=== PATIENT | female | born 1990 | race Caucasian/White ===

== ENCOUNTER 2020-09-04 11:00 | Outpatient (REF) | payer MEDICAID, SELFPAY | END 2020-09-04 11:01 | disposition home or self-care (01) | LOC: HO.LAB 11:00 | PROVIDERS: Visit Provider Internal Medicine | DX: Z20.828 Contact with and (suspected) exposure to other viral communicable diseases (principal) | CPT/HCPCS: C9803; U0003 ==

== ENCOUNTER 2021-01-11 13:08 | Outpatient (REF) | payer MEDICAID, SELFPAY ==
--- NOTE | ~2021-01-11 | XR_ITS ---
EXAMINATION: XR CHEST CLINICAL INFORMATION: Preprocedure exam COMPARISON: None TECHNIQUE: 2 views of the chest were obtained. FINDINGS: No significant abnormality is noted involving the heart, lungs, mediastinum, bony thorax or soft tissues. XR/XR chest 2V IMPRESSION: Unremarkable examination.
== END 2021-01-11 13:09 | disposition home or self-care (01) ==
LOC: HO.XRAY 13:08
PROVIDERS: PCP Internal Medicine; Visit Provider Internal Medicine
DX: Z01.818 Encounter for other preprocedural examination (principal)
CPT/HCPCS: 71046

== ENCOUNTER 2021-02-17 15:21 | Outpatient (REF) | payer MEDICAID, SELFPAY ==
[2021-02-17 16:48] LABS: Anion Gap 12 (12-20); Blood Urea Nitrogen 13 mg/dL (9-16); Calcium 9.1 mg/dL (8.4-10.2); Carbon Dioxide 28 mmol/L (22-29); Chloride 104 mmol/L (96-108); Estimated Glomerular Filt Rate 33; Potassium 4.3 mmol/L (3.3-5.1); Sodium 140 mmol/L (135-145)
== END 2021-02-17 15:22 | disposition home or self-care (01) ==
LOC: HO.LAB 15:21
PROVIDERS: PCP Pediatrics; Visit Provider Internal Medicine Nephrology
DX: N17.9 Acute kidney failure, unspecified (principal)
CPT/HCPCS: 36415; 80051; 82310; 82565; 84520

== ENCOUNTER 2022-08-09 10:02 | Emergency (ER) | payer MEDICAID, SELFPAY ==
[2022-08-09 10:16] VITALS: BP 118/46; PULSE 73; RESP 20; TEMP 36.3; O2SAT 100; BMI 25.7
[2022-08-09 10:30] LABS: MANUAL DIFF FLAG NO
[2022-08-09 10:34] LABS: Basophils Absolute Auto 0.1 X10*3/uL (0.0-0.2); Basophils Percent Auto 0.6 % (0-2); Eosinophils Absolute Auto 0.1 X10*3/uL (0.0-0.4); Eosinophils Percent Auto 1.3 % (0-4); Hematocrit 37.8 % (37.0-47.0); Hemoglobin 12.6 g/dl (12.0-16.0); Imm Gran Abs Auto 0.05 X10*3/uL (0.00-0.03); Imm Gran Pct Auto 0.5 % (0.0-0.4); Lymphocytes Absolute Auto 1.8 X10*3/uL (1.2-4.9); Lymphocytes Percent Auto 18.8 % (20-40); Mean Corpuscular HGB Conc 33.3 g/dl (31.0-35.0); Monocytes Absolute Auto 0.3 X10*3/uL (0.1-1.2); Monocytes Percent Auto 3.6 % (2-11); Neutrophils Absolute Auto 7.1 x10*3/uL (2.0-8.3); Neutrophils Percent Auto 75.2 % (45-73); Platelet Count 263 X10*3/uL (160-400); White Blood Count 9.5 X10*3/uL (4.8-10.8)
[2022-08-09 11:14] LABS: Anion Gap 12 (12-20); Blood Urea Nitrogen 8 mg/dL (9-16); Calcium 9.5 mg/dL (8.4-10.2); Carbon Dioxide 23 mmol/L (22-29); Chloride 105 mmol/L (96-108); Estimated Glomerular Filt Rate > 60; Glucose Random 79 mg/dL (60-115); Potassium 3.8 mmol/L (3.3-5.1); Sodium 136 mmol/L (135-145)
--- OUTSIDE RECORDS SUMMARY | 2022-08-09 15:39 | XMS_ITS | Continuity of Care Document ---
:1990 Author Organization [facility] Address [address] [place] [address]- Care Team Providers Name Role Phone Alexey DOZIER, Debbi Haywood Primary Care Physician Encounter [facility] [place] Date(s): 10/22/20 - 11/21/[address] [address] Allergies, Adverse Reactions, Alerts No Known Medication Allergies Medications Colace sodium 100 mg oral capsule 100 mg, 1, capsule, By Mouth, 2 times a day, PRN, # 40 capsule, Refills 0, Tot. Refills 0, Maintenance, for constipation, 05/09/18 6:50:35 EDT, Print Requisition Start Date: 05/09/18 Status: OrderedHandheld Electric Breast Pump See Instructions, # 1 units, Maintenance, See instructions, 05/09/18 6:50:43 EDT, Compound Start Date: 05/09/18 Status: OrderedNexplanon 68 mg subcutaneous implant 1 each = 68 mg, Subcutaneous Infusion, Once, # 1 each, 0 Refills, Soft Stop, 05/06/18 6:53:59 EDT Start Date: 05/06/18 Status: OrderedNexplanon 68 mg subcutaneous implant 1 each = 68 mg, Subcutaneous Infusion, Once, # 1 each, 0 Refills, Soft Stop, 05/09/18 6:52:05 EDT Start Date: 05/09/18 Status: Ordered Problem List Condition Effective Dates Status Health Status Informant Gestational hypertension(Confirmed) Active Active labor(Confirmed) Active delivery indicated due to Active breech presentation(Confirmed) Twins(Confirmed) Active
--- OUTSIDE RECORDS SUMMARY | 2022-08-09 15:39 | XMS_ITS | Continuity of Care Document ---
:1990 Author Organization [facility] Address [address] [place] [address] Drive [address] [place] [address]- Care Team Providers Name Role Phone Debbi Blackburn MD Primary Care Physician Encounter [facility] Date(s): 02/26/21 - 03/05/21 [facility] [address] [place] [address] Drive [address] [place], [place] [address] Attending Physician: Dg Nguyen MD Referring Physician: Debbi Blackburn MD Allergies, Adverse Reactions, Alerts No Known Medication Allergies Medications cetirizine 10 mg oral tablet 1 tablet = 10 mg, By Mouth, Daily, PRN Itch, # 30 tablet, 0 Refills, Maintenance, 02/28/21 2:04:00 EDT, Tablet, [id number], Partial fill upon patient request if the prescription is for a schedule II opioid drug., 160, cm, 02/26/21 11:22:00 EDT... Start Date: 02/28/21 Status: OrderedColace sodium 100 mg oral capsule 100 mg, [...] due to Active breech presentation(Confirmed) Twins(Confirmed) Active Vital Signs Most recent to oldest [Reference Range]: 1 Height 160 cm (02/26/21 11:22 AM) Weight 74 kg (02/26/21 11:22 AM) Body Mass Index [18.5-24.99] 28.91 *H* (02/26/21 11:22 AM) Temperature [96.8-100.4 DegF] 98.3 DegF (02/26/21 11:22 AM) Social History Social History Type Response Smoking Status Never (less than 100 in life time) entered on: 02/18/21 Sex
--- OUTSIDE RECORDS SUMMARY | 2022-08-09 15:39 | XMS_ITS | Continuity of Care Document ---
:1990 Author Organization [facility] Address [address] [place] [address] Drive [address] [place] [address]- Care Team Providers Name Role Phone Debbi Blackburn MD Primary Care Physician Encounter [facility] Date(s): 02/18/21 - 02/25/21 [facility] [address] [place] [address] Drive [address] [place], [place] [address] Attending Physician: Dg Nguyen [...] oldest [Reference Range]: 1 Height 160 cm (02/18/21 11:49 AM) Weight 77 kg (02/18/21 11:49 AM) Body Mass Index [18.5-24.99] 30.08 *>HHI* (02/18/21 11:49 AM) Social History Social History Type Response Smoking Status Never (less than 100 in life time) entered on: 02/18/21 Sex
--- OUTSIDE RECORDS SUMMARY | 2022-08-09 15:39 | XMS_ITS | Continuity of Care Document ---
:1990 Author Organization [facility] Address [address] [place] [address]- Care Team Providers Name Role Phone Alexey DOZIER, Debbi Haywood Primary Care Physician En[place] [facility] Date(s): 04/08/20 - 05/08/[address] [address]- [facility] Attending Physician: Stew Campbell Admitting Physician: Stew Campbell Referring Physician: AdmtrStew Allergies, Adverse Reactions, Alerts No Known Medication [...]
--- OUTSIDE RECORDS SUMMARY | 2022-08-09 15:39 | XMS_ITS | Continuity of Care Document ---
:1990 Author Organization [facility] Address [address] [place] [address] Drive [address] [place] [address]- Care Team Providers Name Role Phone Alexey DOZIER, Debbi Haywood Primary Care Physician Encounter [facility] Date(s): 02/26/21 - 03/28/21 [facility] [address] [place] [address] Drive [address] [place], [place] [address] Attending Physician: Stew Campbell Admitting Physician: Stew Campbell Referring Physician: AdmtrStew Allergies, Adverse Reactions, Alerts No Known Medication Allergies Medications cetirizine 10 mg oral tablet 1 tablet = 10 mg, By Mouth, Daily, PRN Itch, # 30 tablet, 0 Refills, Maintenance, 02/28/21 2:04:00 EDT, Tablet, [id number], Partial fill upon patient request if the [...] due to Active breech presentation(Confirmed) Twins(Confirmed) Active Social History Social History Type Response Smoking Status Never (less than 100 in life time) entered on: 02/18/21 Sex
--- OUTSIDE RECORDS SUMMARY | 2022-08-09 15:40 | XMS_ITS | Continuity of Care Document ---
:1990 Author Organization [facility] Address [address] [place] [address]- Care Team Providers Name Role Phone Alexey DOZIER, Debbi Haywood Primary Care Physician Encounter [facility] [place] Date(s): 02/26/20 - 05/08/[address] [address]- [facility] Attending Physician: Not on Staff, Attending MD Allergies, Adverse Reactions, Alerts No Known [...]
--- OUTSIDE RECORDS SUMMARY | 2022-08-09 15:40 | XMS_ITS | Continuity of Care Document ---
:1990 Author Organization [facility] Address [address] [place] [address]- Care Team Providers Name Role Phone Debbi Blackburn MD Primary Care Physician Encounter [facility] [place] Date(s): 02/12/21 - 03/14/[address] [address] Attending Physician: Not on Staff, Attending MD Admitting Physician: Not on Staff, Admitting MD Referring Physician: Not on Staff, Referring MD Allergies, Adverse Reactions, Alerts No Known Medication Allergies Medications cetirizine 10 mg oral tablet 1 tablet = 10 mg, By Mouth, Daily, PRN Itch, # 30 tablet, 0 Refills, Maintenance, 02/28/21 2:04:00 EDT, Tablet, [id number], Partial fill upon patient request if the [...]
--- OUTSIDE RECORDS SUMMARY | 2022-08-09 15:40 | XMS_ITS | Continuity of Care Document ---
:1990 Author Organization [facility] Address [address] [place] [address]- Care Team Providers Name Role Phone Debbi Blackburn MD Primary Care Physician [id number] Date(s): 02/27/21 - 02/28/[address] [address]- Encounter Diagnosis Urticaria (Final) - 02/28/21 Urticaria (Final) - 02/28/21 Discharge Disposition: A-D/C Home Attending Physician: Carlos Doe MD Admitting Physician: Carlos Doe MD Referring Physician: Not on Staff, Referring MD Allergies, Adverse Reactions, Alerts No Known Medication Allergies Medications cetirizine 10 mg oral tablet 1 tablet = 10 mg, By Mouth, Daily, PRN Itch, # 30 tablet, 0 Refills, Maintenance, 02/28/21 2:04:00 EDT, Tablet, [facility]/pharmacy #[id number], Partial fill upon patient request if the [...] # 1 each, 0 Refills, Soft Stop, 08/05/18 6:53:59 EDT Start Date: 05/06/18 Status: OrderedNexplanon 68 mg subcutaneous implant 1 each = 68 mg, Subcutaneous Infusion, Once, # 1 each, 0 Refills, Soft Stop, 05/09/18 6:52:05 EDT Start Date: 05/09/18 Status: OrderedpredniSONE 20 mg oral tablet 2 tablet = 40 mg, By Mouth, Daily, for 5 days, # 10 tablet, 0 Refills, Acute 03/05/21 2:04:00 EDT, 02/28/21 2:04:00 EDT, Tablet, [facility]/pharmacy #[id number], Partial fill upon patient request if the prescription is for a schedule II opioid drug., 160, cm, 01/31... Start Date: 02/28/21 Stop Date: 03/05/21 Status: Ordered Problem List Condition Effective Dates Status Health Status Informant Gestational hypertension(Confirmed) Active Active labor(Confirmed) Active delivery indicated due to Active breech presentation(Confirmed) Twins(Confirmed) Active Vital Signs Most recent to oldest 1 2 3 [Reference Range]: Weight 72.8 kg 72.8 kg 72.8 kg (02/28/21 12:17 AM) (02/27/21 9:52 PM) (02/27/21 9: 47 PM) Oxygen Saturation [94-100 %] 100 % 100 % 100 % (02/28/21 2:47 AM) (02/28/21 12:16 AM) (02/27/21 9: 52 PM) Pulse Rate [55-90 bpm] 76 bpm 86 bpm 93 bpm (02/28/21 2:47 AM) (02/28/21 12:16 AM) *H* (02/27/21 9:52 PM ) Blood Pressure [90-138/55-84 121/67 mm Hg 145/85 mm Hg 133 /91 mm Hg mm Hg] (02/28/21 2:47 AM) *H* (02/27/21 9:52 PM) (02/28/21 12:16 AM) Respiratory Rate [16-30 18 br/min 16 br/min 20 br/mi n br/min] (02/28/21 2:47 AM) (02/28/21 12:16 AM) (02/27/21 9: 52 PM) Temperature [96.8-100.4 DegF] 98.3 DegF 98.5 DegF 98 .6 DegF (02/28/21 2:47 AM) (02/28/21 12:16 AM) (02/27/21 9: 52 PM) Mode of Delivery (Oxygen) Room air Room air Room a ir (02/28/21 12:16 AM) (02/27/21 9:52 PM) (02/27/21 9: 47 PM) Blood pressure sites Arm, left Arm, left Arm, left (02/28/21 2:47 AM) (02/28/21 12:16 AM) (02/27/21 9: 47 PM) Temperature Route Oral Oral Oral (02/28/21 12:16 AM) (02/27/21 9:52 PM) (02/27/21 9: 47 PM) Dry Weight 72.8 kg 72.8 kg 72.8 kg (02/28/21 12:17 AM) (02/27/21 9:52 PM) (02/27/21 9: 47 PM) Weight Obtained Via Standing scale (02/27/21 9:47 PM) Social History Social History Type Response Smoking Status Never (less than 100 in life time) entered on: 02/18/21 Sex
--- OUTSIDE RECORDS SUMMARY | 2022-08-09 15:40 | XMS_ITS | Continuity of Care Document ---
:1990 Author Organization [facility] Address [address] [place] [address]- Care Team Providers Name Role Phone Alexey DOZIER, Debbi Haywood Primary Care Physician Encounter [facility] Date(s): 11/14/20 - 03/14/[address] [address] Attending Physician: Darlene Carl CNM Admitting Physician: Darlene Carl CNM Referring Physician: Stephon DOZIER, Sierra Armstrong Allergies, Adverse Reactions, Alerts No Known Medication Allergies Medications cetirizine 10 mg oral tablet 1 tablet = 10 mg, By Mouth, Daily, PRN Itch, # 30 tablet, 0 Refills, Maintenance, 02/28/21 2:04:00 EDT, Tablet, [facility]/pharmacy #[id number], Partial fill upon patient request if the [...]
--- OUTSIDE RECORDS SUMMARY | 2022-08-09 15:40 | XMS_ITS | Continuity of Care Document ---
:1990 Author Organization [facility] Address [address] [place] [address]- Care Team Providers Name Role Phone Alexey DOZIER, Debbi Haywood Primary Care Physician Encounter [facility] Date(s): 02/05/21 - 02/12/[address] [address] Discharge Disposition: A-Transfer VNA/Home Health Attending Physician: Ge Wade MD Admitting Physician: Bg Simpson MD Referring Physician: Not on Staff, Referring MD Allergies, Adverse Reactions, Alerts No Known Medication Allergies Medications acetaminophen-oxyCODONE 325 mg-5 mg oral tablet 1, tablet, By Mouth, Every 4 hours, PRN, # 12 tablet, Refills 0, Tot. Refills 0, Acute, Pain , Severe, 02/18/21 18:00:00 EDT, 02/12/21 14:03:00 EDT, Route to Pharmacy Electronically, [facility]/pharmacy #[id number], Partial fill upon patient request if the... Start Date: 02/12/21 Stop Date: 02/18/21 Status: Orderedcephalexin monohydrate 500 mg oral capsule 1 capsule = 500 mg, By Mouth, Every 12 hours, for 7 days, # 14 capsule, 0 Refills, Acute 02/19/21 14:01:00 EDT, 02/12/21 14:01:00 EDT, Capsule, [facility]/pharmacy #[id number], Partial fill upon patient request if the prescription is for a schedule II opioid drug.... Start Date: 02/12/21 Stop Date: 02/19/21 Status: OrderedColace sodium 100 mg oral capsule [...] 05/09/18 6:52:05 EDT Start Date: 05/09/18 Status: OrderedPercocet-5 Tablet 1 tablet, Tablet, By Mouth, Every 4 hours, Hold for: Pt is drowsy , RR < 10, PRN for Pain , Severe, Routine, 02/06/21 0:49:00 EDT Start Date: 02/06/21 Stop Date: 02/13/21 Status: Discontinued Problem List Condition Effective Dates Status Health Status Informant Gestational hypertension(Confirmed) Active Active labor(Confirmed) Active delivery indicated due to Active breech presentation(Confirmed) Twins(Confirmed) Active Results Orders for Microbiology Reports Name Date Sterile Body Fluid Culture W/ Gram Smear 02/10/21 Sterile Body Fluid Culture W/ Gram Smear 02/10/21 Anaerobic Culture (ANAEROBIC CULTURE) 02/10/21 Anaerobic Culture (ANAEROBIC CULTURE) 02/10/21 Anaerobic Culture (ANAEROBIC CULTURE) 02/07/21 Sterile Body Fluid Culture W/ Gram Smear (Culture Ster ile Body Fluid w/ Gram 02/07/21 Smear) Urine Culture (URINE CULTURE) 02/05/21 Blood Culture 02/05/21 Blood Culture #2 02/05/21 Microbiology Reports TEST:Anaerobic Culture STATUS:Unauthenticated BODY SITE: SOURCE:ABDOMI COLLECTED DATE/TIME:02/10/21 10:41 AMAnaerobic Culture SPECIMEN DESCRIPTION : ABDOMINAL FLUID RIGHT LOWER QUAD SPECIAL REQUESTS : NONE CULTURE : NO ANAEROBES ISOLATED SO FAR. REPORT STATUS : PRELIMINARY REPORT TEST:Anaerobic Culture STATUS:Unauthenticated BODY SITE: SOURCE:ABDOMI COLLECTED DATE/TIME:02/10/21 10:41 AMAnaerobic Culture SPECIMEN DESCRIPTION : ABDOMINAL FLUID LEFT LOWER QUAD SPECIAL REQUESTS : NONE CULTURE : NO ANAEROBES ISOLATED SO FAR. REPORT STATUS : PRELIMINARY REPORT TEST:Sterile Fluid Culture STATUS:Auth (Verified) BODY SITE: SOURCE:ABDOMI COLLECTED DATE/TIME:02/10/21 10:41 AMSterile Fluid Culture SPECIMEN DESCRIPTION : ABDOMINAL FLUID LEFT LOWER QUAD SPECIAL REQUESTS : NONE GRAM STAIN : 2+ WHITE BLOOD CELLS 1+ RBC'S NO ORGANISMS SEEN CULTURE : NO GROWTH 2 DAYS REPORT STATUS : FINAL 02/12/2021TEST:Sterile Fluid Culture STATUS:Auth (Verified) BODY SITE: SOURCE:ABDOMI COLLECTED DATE/TIME:02/10/21 10:41 AMSterile Fluid Culture SPECIMEN DESCRIPTION : ABDOMINAL FLUID RIGHT LOWER QUAD SPECIAL REQUESTS : NONE GRAM STAIN : 3+ WHITE BLOOD CELLS 1+ RBC'S NO ORGANISMS SEEN CULTURE : NO GROWTH 2 DAYS REPORT STATUS : FINAL 02/12/2021TEST:Anaerobic Culture STATUS:Auth (Verified) BODY SITE: SOURCE:ABDOMI COLLECTED DATE/TIME:02/07/21 10:25 AMAnaerobic Culture SPECIMEN DESCRIPTION : ABDOMINAL FLUID ABDOMINAL WALL SEROMA SPECIAL REQUESTS : NONE CULTURE : NO ANAEROBES ISOLATED REPORT STATUS : FINAL 02/12/2021TEST:Sterile Fluid Culture STATUS:Auth (Verified) BODY SITE: SOURCE:ABDOMI COLLECTED DATE/TIME:02/07/21 10:25 AMSterile Fluid Culture SPECIMEN DESCRIPTION : ABDOMINAL FLUID ABDOMINAL WALL SEROMA SPECIAL REQUESTS : NONE GRAM STAIN : 2+ WHITE BLOOD CELLS 4+ RBC'S NO ORGANISMS SEEN CULTURE : NO GROWTH 2 DAYS REPORT STATUS : FINAL 02/09/2021TEST:Blood Culture, Second Order STATUS:Auth (Verified) BODY SITE: SOURCE:Blood COLLECTED DATE/TIME:02/05/21 6:41 PMBlood Culture, Second Order SPECIMEN DESCRIPTION : BLOOD LFT SPECIAL REQUESTS : NONE CULTURE : NO GROWTH 5 DAYS. REPORT STATUS : FINAL 02/10/2021TEST:Urine Culture STATUS:Auth (Verified) BODY SITE: SOURCE:URINE COLLECTED DATE/TIME:02/05/21 5:56 PMUrine Culture SPECIMEN DESCRIPTION : URINE SPECIAL REQUESTS : NONE CULTURE : NO GROWTH REPORT STATUS : FINAL 02/07/2021TEST:Blood Culture STATUS:Auth (Verified) BODY SITE: SOURCE:Blood COLLECTED DATE/TIME:02/05/21 4:34 PMBlood Culture SPECIMEN DESCRIPTION : BLOOD NO SITE SPECIAL REQUESTS : NONE CULTURE : NO GROWTH 5 DAYS. REPORT STATUS : FINAL 02/10/2021 Vital Signs Most recent to oldest 1 2 3 [Reference Range]: Height 160 cm 160 cm 160 cm (02/12/21 2:25 PM) (02/12/21 4:39 AM) (02/11/21 8:0 7 PM) Weight 74.5 kg (02/05/21 2:53 PM) Oxygen Saturation [94-100 %] 100 % 100 % 100 % (02/12/21 2:25 PM) (02/12/21 4:39 AM) (02/11/21 8:0 7 PM) Pulse Rate [55-90 bpm] 74 bpm 85 bpm 72 bpm (02/12/21 2:25 PM) (02/12/21 4:39 AM) (02/11/21 8:0 7 PM) Blood Pressure [90-138/55-84 mm 145/77 mm Hg 138/68 mm Hg 127/79 mm Hg Hg] *H* (02/12/21 4:39 AM) (02/11/21 8:07 PM) (02/12/21 2:25 PM) Respiratory Rate [16-30 br/min] 18 br/min 16 br/min 18 br/min (02/12/21 4:52 PM) (02/12/21 2:25 PM) (02/12/21 1:5 4 PM) Temperature [96.8-100.4 DegF] 98.1 DegF 98.6 DegF 98 .5 DegF (02/12/21 2:25 PM) (02/12/21 4:39 AM) (02/11/21 8:0 7 PM) Mode of Delivery (Oxygen) Room air Room air Room a ir (02/12/21 2:25 PM) (02/12/21 4:39 AM) (02/11/21 8:0 7 PM) Blood pressure sites Arm, right Arm, right Arm, right (02/12/21 2:25 PM) (02/12/21 4:39 AM) (02/11/21 8:0 7 PM) Temperature Route Oral Oral Oral (02/12/21 2:25 PM) (02/12/21 4:39 AM) (02/11/21 8:0 7 PM) Dry Weight 74.5 kg (02/05/21 2:53 PM)
--- OUTSIDE RECORDS SUMMARY | 2022-08-09 15:40 | XMS_ITS | Continuity of Care Document ---
:1990 Author Organization [facility] Address [address] [place] [address]- Care Team Providers Name Role Phone Alexey DOZIER, Debbi Haywood Primary Care Physician Encounter [facility] [place] Date(s): 02/26/20 - 03/27/[address] [address]- [facility] Attending Physician: Stew Campbell Admitting [...]
--- OUTSIDE RECORDS SUMMARY | 2022-08-09 15:40 | XMS_ITS | Continuity of Care Document ---
:1990 Author Organization [facility] Address [address] [place] [address]- Care Team Providers Name Role Phone Alexey DOZIER, Debbi Haywood Primary Care Physician Encounter [facility] [place] Date(s): 02/12/21 - 03/14/[address] [address]- Attending Physician: Stew Campbell Admitting Physician: AdmtrStew Referring Physician: AdmtrStew Allergies, Adverse Reactions, Alerts No Known Medication Allergies Medications cetirizine 10 mg oral tablet 1 tablet = 10 mg, By Mouth, Daily, PRN Itch, # 30 tablet, 0 Refills, Maintenance, 02/28/21 2:04:00 EDT, Tablet, [facility]/pharmacy #[id number], Partial fill upon patient request if the [...]
--- OUTSIDE RECORDS SUMMARY | 2022-08-09 15:40 | XMS_ITS | Continuity of Care Document ---
:1990 Author Organization [facility] Address [address] [place] [address]- Care Team Providers Name Role Phone Angelica Cantu MD, Roberta Vang Primary Care Physician [phone] Encounter [facility] Date(s): 07/05/22 - 08/04/[address] [address]- Allergies, Adverse Reactions, Alerts No Known Allergies Medications aspirin 81 mg oral delayed release tablet See Instructions, 2 tablet By Mouth at night Please begin to take at 12 weeks of ., # 60 tablet, 0 Refills, Maintenance, 08/02/22 10:27:00 EDT, CR Tablet, [id number], Partial fill uponpatient request if the prescription is for a gunjan... Start Date: 08/02/22 Status: Orderedcetirizine 10 mg oral tablet 1 tablet = 10 mg, By Mouth, Daily, PRN Itch, # 30 tablet, 0 Refills, Maintenance, 02/28/21 2:04:00 EDT, Tablet, [id number], Partial fill upon patient request if the prescription is for a schedule II opioid drug., 160, cm, 02/26/21 11:22:00 EDT... 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 Pt informed of BHN services - pt reports will notify office if she feels BHN services are needed.3Pt reports she was informed by [employer] she has a short cervix.4Per [facility] [employer] chart scanned in [facility]IS with date of 05/09/20185PTD@ 29w GA of [id number] reports use of progesterone RX IM with .[id number] [facility] [employer] chart scanned in CIS with date of 05/09/20189Per [facility] [employer] chart scanned in CIS with date of 05/09/2018 Social History Social History Type Response Smoking Status Never (less than 100 in life time) entered on: 02/18/21 Sex Patient Care team information PersonnelName: Angelica Cantu MD, Roberta Vang Address: [address]: [address] [place] [address] [address] [place] [address]
== END 2022-08-09 16:32 | disposition left against medical advice (07) ==
PROVIDERS: Emergency Provider Emergency Medicine; PCP Internal Medicine
DX: O26.891 Other specified pregnancy related conditions, first trimester (principal); R10.31 Right lower quadrant pain; R19.03 Right lower quadrant abdominal swelling, mass and lump; Z3A.09 9 weeks gestation of pregnancy
CPT/HCPCS: 36415; 80048; 84702; 85025; 99281; 99282; 99283

== ENCOUNTER 2022-08-11 08:53 | Emergency (ER) | payer MEDICAID, SELFPAY ==
--- NOTE | ~2022-08-11 | US_ITS ---
EXAMINATION: US OBSTETRICAL ULTRASOUND CLINICAL INFORMATION: 9 weeks with suprapubic pain in area of COMPARISON: Prior OB ultrasound 02/08/2018. LMP: 06/05/2022. Gestational age by maternal dates is 9 weeks 4 days. Estimated date of delivery by maternal dates is 03/12/2023. TECHNIQUE: Transabdominal ultrasound was performed FINDINGS: There is a single intrauterine gestational sac with visible yolk sac, embryo/fetus, and cardiac activity. There is no significant subchorionic hemorrhage or hematoma. HR: 169 beats per minute. CRL (crown rump length): 3.34 cm (10 weeks 2 days +/- 4 days). EL (estimated date of delivery): 03/07/2023 +/- 4 days. MATERNAL ADNEXA: The right maternal ovary measures 2.7 x 1.8 x 2.0 cm. The left maternal ovary not seen. There is no significant maternal adnexal mass. No maternal pelvic ascites. In the area of the patient's pain near the scar, there is a 1.0 x 0.6 x 1.3 cm lymph node seen US/US OB pelvic and transvaginal IMPRESSION: 1. Single intrauterine gestation with ultrasound gestational age of 10 weeks 2 days +/- 4 days. 2. Estimated date of delivery is 03/07/2023 +/- 4 days. 3. No maternal adnexal mass or pelvic ascites. 4. Small subcutaneous lymph node seen in the area of patient's pain.
--- NOTE | ~2022-08-11 | US_ITS ---
EXAMINATION: ABDOMINAL ULTRASOUND CLINICAL INFORMATION: Right lower quadrant pain with question of appendicitis COMPARISON: None TECHNIQUE: High-frequency linear transducer along with curved transducer was used to evaluate the appendix. FINDINGS: Appendix: Non-visualized appendix. Free Fluid: No. Increased Echogenicity Of Periappendiceal Fat: No. Mesenteric Lymph Nodes: No. Abscess: No. Right Kidney: Normal without hydronephrosis. Additional Abnormalities: None. US/US appendix IMPRESSION: Non-visualized appendix with no ancillary findings to suggest appendicitis.
[2022-08-11 09:12] VITALS: BP 116/61; PULSE 88; RESP 18; TEMP 36.3; O2SAT 100; BMI 25.7
[2022-08-11 10:59] LABS: Appearance Urine Cloudy; Color Urine Yellow; Glucose Urine UA Negative (Negative); Leukocyte Esterase Urine Negative (Negative); Nitrite Urine Negative (Negative); Specific Gravity - Urine 1.025 (1.005-1.025); Urine Blood Negative (Negative); Urine Ketones Negative (Negative); Urine Protein Negative (Neg-Trace)
[2022-08-11 11:00] LABS: Prothrombin Time 11.3 SEC (10.0-13.1)
[2022-08-11 11:03] LABS: UPreg QC Valid YES; Urine Pregnancy POSITIVE (NEGATIVE)
--- NOTE | 2022-08-11 11:05 | ED_ITS ---
HPI - General Chief complaint: General Medical Stated complaint: lump on pelvic area Time Seen by Provider: 08/11/22 09:52 Source: patient Mode of arrival: ambulatory Limitations: no limitations History of Present Illness HPI Narrative: 31-year-old female who is a B0 currently approximately 9 weeks last menstrual period on June 05 seen on telehealth visit by [facility] Melina woman who has not had an ultrasound presenting to the ER with complaints of right suprapubic abdominal pain she reports ?I think I have a hernia?. 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 She denies any fevers, chills, dizziness, headaches, neck pain/stiffness, sore throat, chest pain or shortness of breath, cough, radiation of the abdominal pain, flank pain, nausea/vomiting, black or bloody stools, diarrhea constipation, vaginal bl eeding, or abnormal vaginal discharge or any other symptoms complaints or concerns at this time. MD Complaint: abdominal pain Onset (ago): day(s) (2) Pain Consistency: constant Location: pelvis (right suprapubic area ) Severity: mild Quality: Aching Relieving factors: none Exacerbating factors: other (Palpation in that 1 area) Associated symptoms: denies other symptoms Vaginal discharge: none Vaginal bleeding: none Date of Last Menstrual Period: 06/05/22 Patient : Yes Number of Weeks : 9 OB History - Current : no complications OB History - Previous Pregnancies: gestational diabetes and other (and labors ) care: followed by OB Related Data : 6 Para: 5 Total number of abortions (spontaneous and elective): 0 Previous Rx's Medication Instructions Recorded cephalexin 500 mg capsule 500 mg PO Q6H 7 days #28 caps 08/11/22 Allergies Allergy/AdvReac Type Severity Reaction Status Date / Time No Known Allergies Allergy Mild NOT Verified 08/11/22 09:11 APPLICABLE Review of Systems Review of Systems: Constitutional : No Fever, No Chills ENT/Mouth : No sore throat, No Rhinorrhea Eyes: No Eye Pain, No Redness Cardiovascular : No Chest Pain, No SOB Respiratory : No Cough, No Sputum, No Wheezing Gastrointestinal : No Nausea, No Vomiting, No Diarrhea, + abdominal pain, Genitourinary : No irregular bleeding, No Dysuria, No Urinary Frequency, No pelvic pain, No vaginal discharge, no hematuria Musculoskeletal : No Myalgias Skin : No rash Neuro : No Weakness, No Headache Psych : No Anxiety/Panic, No Depression Heme/Lymph: No bruising, No Lymphadenopathy Endocrine : No Polyuria, No Polydipsia Yes all other systems are reviewed and are negative [facility] Past Medical History Attestation statement: The following information was validated with the patient. Source: old records reviewed and nursing notes reviewed : 6 Para: 5 Total number of abortions (spontaneous and elective): 0 Date of Last Menstrual Period: 06/05/22 Social History Social History Advance Directives: No Patient : Yes Physical Exam Vital Signs: Vital Signs: Last Vital Signs Temp 97.3 F 08/11/22 09:12 Pulse 88 08/11/22 09:12 Resp 18 08/11/22 09:12 BP 116/61 08/11/22 09:12 Pulse Ox 100 08/11/22 09:12 BMI result Body Mass Index 25.7 vital signs have been reviewed as normal and appeared to be correct. Blood pressure normal. Heart rate normal. Respiration rate normal. Temperature normal. Oxygen saturation normal. Appearance: Alert. Oriented X3. No acute distress. Head: Normal external exam. Normocephalic. Atraumatic. Eyes: PERRLA. EOMI. Conjunctiva and sclera normal. Eyelids normal. ENT: Pharynx normal. Uvula midline. Moist mucous membranes. No lesions/ulcerations or masses noted on the tongue. Normal voice. No trismus noted. No drooling noted. No muffled voice noted. Neck: Normal inspection. Neck supple. FROM. No adenopathy. Thyroid Normal. No meningeal signs. CVS: Normal heart rate and rhythm. Heart sound normal. Pulses normal throughout. No murmurs/rales/gallops. Respiratory: No respiratory distress. Painless inspiration. Breath sounds normal. No wheezes/rales/rhonchi noted. Chest nontender. No crepitus is noted. No accessory muscle usage noted or decreased air movement noted. No signs of trauma. Abdomen: Soft and point tenderness over the right suprapubic area where her C- section surgical scar is noted. No right lower quadrant tenderness or any additional tenderness of the abdomen. Nondistended. No guarding. No rigidity. Bowel sounds normal in all 4 quadrants. No distention noted. No organomegaly noted. No visible injury noted. No rebound tenderness. Negative Rovsing sign. Negative obturator's sign. Negative psoas sign. Negative Waller sign. Back: No CVA tenderness. Full range of motion noted. Nontender. No signs of trauma. Patient neuro intact bilaterally and distally on all 4 extremities. Patient's reflexes intact bilaterally and distally on all 4 extremities. No rashes/lesion/induration/fluctuance or signs of infection noted. Skin: Skin warm and dry. Normal skin color. Normal skin turgor. No rashes/lesions/lacerations noted. Extremities: No lower extremity edema. No calf tenderness is noted. Extremities exhibit normal range of motion and nontender. Neuro: Oriented X 3. No motor deficit. No sensory deficit. Reflexes normal. Normal steady gait. No focal neuro deficits noted. CN's II-XII intact bilaterally? Vascular: + radial pulses/+ 2 distal pedal pulses/+2 dorsalis pedis b/l. Normal cap refill. No cyanosis noted to upper extremity nails and lower extremity toes nails. Course Course Course Narrative: 31-year-old female who is a B0 currently approximately 9 weeks last menstrual period on June 05 seen on telehealth visit by [facility] woman who has not had an ultrasound presenting to the ER with complaints of right suprapubic abdominal pain she reports ?I think I have a hernia?. 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 Patient does admit that she was in the waiting room here on 08/09/2022 and had blood work done although she left without being seen due to a long wait time. - Labs reviewed and all labs within normal limits. - Her serum quant did drop from [id number] to [id number] in 2 days. - UA within normal limits no evidence of UTI. Urine is positive. - ultrasound of her abdomen was unable to visualize appendix although no inflammatory changes around the appendix. - transvaginal and pelvic ultrasound revealed single intrauterine gestation with ultrasound gestational age of 10 weeks and 2 days +/-4 days. Estimated delivery date is 03/07/2023. No adnexal mass or pelvic ascites. She does have a small subcutaneous lymph nodes seen in the area of the patient's pain. - patient is A positive for blood side. - due to patient having intrauterine does not have a elevated white blood cell count is afebrile denying any nausea and vomiting and does not have right lower quadrant abdominal tenderness it does not appear that the patient has appendicitis at this time. Will DC home with antibiotics for possible infection due to painful adenopathy and instructions to follow-up with her PCP/OBGYN this week and to return if any new or worsening symptoms. Patient understands agrees with this plan. MDM - OB/Uterine Contractions Medical Records Attestation: I reviewed the patient's medical records. Lab Data Attestation: I reviewed the patient's lab results. Result diagrams: 08/11/22 10:25 08/11/22 10:25 Labs: Lab Results 08/11/22 08/11/22 08/11/22 Range/Units 10:25 10:25 10:25 WBC 9.3 (4.8-10.8) X10*3/uL RBC 4.51 (4.20-5.50) X10*6/uL Hgb 12.4 (12.0-16.0) g/dl Hct 37.4 (37.0-47.0) % MCV 82.9 (80.0-98.0) fL MCH 27.5 (27.0-33.0) pg MCHC 33.2 (31.0-35.0) g/dl RDW 12.8 (11.0-16.0) % Plt Count TNP MPV 10.3 (9.4-12.3) fL Immature Gran % (Auto) 0.5 H (0.0-0.4) % Neut % (Auto) 76.4 H (45-73) % Lymph % (Auto) 16.8 L (20-40) % [place] % (Auto) 4.5 (2-11) % Eos % (Auto) 1.3 (0-4) % Baso % (Auto) 0.5 (0-2) % Lymph # (Auto) 1.6 (1.2-4.9) X10*3/uL [place] # (Auto) 0.4 (0.1-1.2) X10*3/uL Eos # (Auto) 0.1 (0.0-0.4) X10*3/uL Baso # (Auto) 0.1 (0.0-0.2) X10*3/uL Abs Immat Gran (auto) 0.05 H (0.00-0.03) X10*3/uL Absolute Neuts (auto) 7.1 (2.0-8.3) x10*3/uL Absolute Nucleated RBC 0.000 (0.0-0.012) X10*3/uL Nucleated RBC % (auto) 0.0 (0.0-0.2) /100WBC Smear Tech's Comments VERIFIED PT (10.0-13.1) SEC INR (0.9-1.1) Sodium 136 (135-145) mmol/L Potassium 4.3 (3.3-5.1) mmol/L Chloride 105 (96-108) mmol/L Carbon Dioxide 22 (22-29) mmol/L Anion Gap 13 (12-20) BUN 9 (9-16) mg/dL Creatinine 0.77 (0.5-1.4) mg/dL Estim Creat Clear Calc 94.7 Estimated GFR > 60 Random Glucose 80 (60-115) mg/dL Calcium 9.2 (8.4-10.2) mg/dL Magnesium 2.0 (1.6-2.6) mg/dL Total Bilirubin 0.4 (0.0-1.0) mg/dL AST 12 (5-31) U/L ALT 12 (0-31) U/L Alkaline Phosphatase 50 (39-117) U/L Total Protein 6.9 (6.5-8.0) g/dL Albumin 4.1 (3.5-5.0) g/dL Beta HCG, Quant 942153 mIU/mL Urine Color Urine Appearance Urine pH (5.0-9.0) Ur Specific [place] (1.005-1.025) Urine Protein (Neg-Trace) mg/dL Urine Glucose (UA) (Negative) mg/dL Urine Ketones (Negative) mg/dL Urine Blood (Negative) Urine Nitrite (Negative) Ur Leukocyte Esterase (Negative) Urine Test (NEGATIVE) Blood Type A Positive 08/11/22 08/11/22 08/11/22 Range/Units 10:25 10:27 10:27 WBC (4.8-10.8) X10*3/uL RBC (4.20-5.50) X10*6/uL Hgb (12.0-16.0) g/dl Hct (37.0-47.0) % MCV (80.0-98.0) fL MCH (27.0-33.0) pg MCHC (31.0-35.0) g/dl RDW (11.0-16.0) % Plt Count MPV (9.4-12.3) fL Immature Gran % (Auto) (0.0-0.4) % Neut % (Auto) (45-73) % Lymph % (Auto) (20-40) % [place] % (Auto) (2-11) % Eos % (Auto) (0-4) % Baso % (Auto) (0-2) % Lymph # (Auto) (1.2-4.9) X10*3/uL [place] # (Auto) (0.1-1.2) X10*3/uL Eos # (Auto) (0.0-0.4) X10*3/uL Baso # (Auto) (0.0-0.2) X10*3/uL Abs Immat Gran (auto) (0.00-0.03) X10*3/uL Absolute Neuts (auto) (2.0-8.3) x10*3/uL Absolute Nucleated RBC (0.0-0.012) X10*3/uL Nucleated RBC % (auto) (0.0-0.2) /100WBC Smear Tech's Comments PT 11.3 (10.0-13.1) SEC INR 1.0 (0.9-1.1) Sodium (135-145) mmol/L Potassium (3.3-5.1) mmol/L Chloride (96-108) mmol/L Carbon Dioxide (22-29) mmol/L Anion Gap (12-20) BUN (9-16) mg/dL Creatinine (0.5-1.4) mg/dL Estim Creat Clear Calc Estimated GFR Random Glucose (60-115) mg/dL Calcium (8.4-10.2) mg/dL Magnesium (1.6-2.6) mg/dL Total Bilirubin (0.0-1.0) mg/dL AST (5-31) U/L ALT (0-31) U/L Alkaline Phosphatase (39-117) U/L Total Protein (6.5-8.0) g/dL Albumin (3.5-5.0) g/dL Beta HCG, Quant mIU/mL Urine Color Yellow Urine Appearance Cloudy Urine pH 7.0 (5.0-9.0) Ur Specific [place] 1.025 (1.005-1.025) Urine Protein Negative (Neg-Trace) mg/dL Urine Glucose (UA) Negative (Negative) mg/dL Urine Ketones Negative (Negative) mg/dL Urine Blood Negative (Negative) Urine Nitrite Negative (Negative) Ur Leukocyte Esterase Negative (Negative) Urine Test POSITIVE H (NEGATIVE) Blood Type Imaging Data Pelvic/transvaginal/appendix ultrasound: Attestation: I personally reviewed and interpreted this imaging study as follows: Radiologist's impression: FINDINGS: There is a single intrauterine gestational sac with visible yolk sac, embryo/fetus, and cardiac activity.? There is no significant subchorionic hemorrhage or hematoma. HR:? 169 beats per minute. CRL (crown rump length): ? 3.34 cm (10 weeks 2 days +/- 4 days). EL (estimated date of delivery):? 03/07/2023 +/- 4 days. ? MATERNAL ADNEXA: ? ? The right maternal ovary measures 2.7 x 1.8 x 2.0 cm. The left maternal ovary not seen. There is no significant maternal adnexal mass.? No maternal pelvic ascites. In the area of the patient's pain near the scar, there is a 1.0 x 0.6 x 1.3 cm lymph node seen US/US OB pelvic and transvaginal IMPRESSION: 1. Single intrauterine gestation with ultrasound gestational age of? 10 weeks 2 days +/- 4 days. 2. Estimated date of delivery is 03/07/2023 +/- 4 days. 3. No maternal adnexal mass or pelvic ascites. 4. Small subcutaneous lymph node seen in the area of patient's pain. FINDINGS: Appendix: Non-visualized appendix. Free Fluid: No. Increased Echogenicity Of Periappendiceal Fat: No. Mesenteric Lymph Nodes: No. Abscess: No.? Right Kidney: Normal without hydronephrosis. Additional Abnormalities: None. US/US appendix IMPRESSION: Non-visualized appendix with no ancillary findings to suggest appendicitis. ? Procedures Perimortem Number of Weeks : 9 Discharge Plan Discharge Clinical Impression: Abdominal lymphadenopathy, Patient Disposition: Home, Self-Care Instructions: Lymphadenopathy (ED), at 7 to 10 Weeks (ED) Prescriptions: New cephalexin 500 mg capsule 500 mg PO Q6H 7 Days Qty: 28 0RF Referrals: Peggy Carcamo MD [Primary Care Provider] - 2 days (For recheck)
[2022-08-11 11:07] LABS: Imm Gran Abs Auto 0.05 X10*3/uL (0.00-0.03); Monocytes Absolute Auto 0.4 X10*3/uL (0.1-1.2); PLT CLUMP 1; SCAN SMEAR FLAG 1
[2022-08-11 11:08] LABS: Alanine Aminotransferase 12 U/L (0-31); Albumin Level 4.1 g/dL (3.5-5.0); Alkaline Phosphatase 50 U/L (39-117); Anion Gap 13 (12-20); Aspartate Amino Transferase 12 U/L (5-31); Bilirubin Total 0.4 mg/dL (0.0-1.0); Blood Urea Nitrogen 9 mg/dL (9-16); Calcium 9.2 mg/dL (8.4-10.2); Carbon Dioxide 22 mmol/L (22-29); Chloride 105 mmol/L (96-108); Creatinine Clr Calc Pharmacy 94.7; Estimated Glomerular Filt Rate > 60; Glucose Random 80 mg/dL (60-115); Potassium 4.3 mmol/L (3.3-5.1); Sodium 136 mmol/L (135-145); Total Protein 6.9 g/dL (6.5-8.0)
[2022-08-11 11:10] LABS: Basophils Absolute Auto 0.1 X10*3/uL (0.0-0.2); Basophils Percent Auto 0.5 % (0-2); Eosinophils Absolute Auto 0.1 X10*3/uL (0.0-0.4); Eosinophils Percent Auto 1.3 % (0-4); Hematocrit 37.4 % (37.0-47.0); Hemoglobin 12.4 g/dl (12.0-16.0); Imm Gran Pct Auto 0.5 % (0.0-0.4); Lymphocytes Absolute Auto 1.6 X10*3/uL (1.2-4.9); Lymphocytes Percent Auto 16.8 % (20-40); MANUAL DIFF FLAG SCAN; Mean Corpuscular HGB Conc 33.2 g/dl (31.0-35.0); Mean Corpuscular Hemoglobin 27.5 pg (27.0-33.0); Mean Corpuscular Volume 82.9 fL (80.0-98.0); Mean Platelet Volume 10.3 fL (9.4-12.3); Monocytes Percent Auto 4.5 % (2-11); Neutrophils Absolute Auto 7.1 x10*3/uL (2.0-8.3); Neutrophils Percent Auto 76.4 % (45-73); Red Blood Count 4.51 X10*6/uL (4.20-5.50); Red Cell Distribution Width 12.8 % (11.0-16.0)
[2022-08-11 11:12] LABS: White Blood Count 9.3 X10*3/uL (4.8-10.8)
[2022-08-11 11:16] LABS: SLIDE REVIEW VERIFIED
== END 2022-08-11 13:21 | disposition home or self-care (01) ==
PROVIDERS: Physician Assistant Medical; Emergency Provider Emergency Medicine Emergency Medical Services; PCP Internal Medicine
DX: O26.891 Other specified pregnancy related conditions, first trimester (principal); R59.0 Localized enlarged lymph nodes; R10.30 Lower abdominal pain, unspecified; Z3A.10 10 weeks gestation of pregnancy
CPT/HCPCS: 36415; 76705; 76801; 76817; 80053; 81003; 81025; 83735; 84702; 85025; 85610; 86900; 86901; 99283; 99284

== ENCOUNTER 2024-07-23 20:16 | Emergency (ER) | payer MEDICAID, SELFPAY ==
--- NOTE | ~2024-07-23 | US_ITS ---
EXAMINATIONS: ULTRASOUND PELVIC, COMPLETE AND DOPPLER INTERROGATION CLINICAL INFORMATION: . Bleeding. Potential ectopic . COMPARISON: Pelvic ultrasound from 08/11/2022. TECHNIQUE: Transabdominal and transvaginal imaging was performed. Transvaginal imaging was performed for further evaluation of the endometrium and adnexa. Doppler interrogation spectral analysis was performed. FINDINGS: The uterus is of normal size and echogenicity measuring 9.7 x 4.6 x 5.4 cm. A regular homogeneous endometrium is identified measuring 0.7 cm. Small focus of hyperechoic material within the endometrium suggestive of calcification versus blood products. No demonstrated abnormal vascularity of the endometrium by Doppler imaging. Both ovaries are of normal size and echogenicity. The right measures 4 x 2.4 x 2.6 cm. There is a 1.2 cm heterogeneous (largely hypoechoic) structure associated with the right ovary without associated Doppler flow. The left measures 2.8 x 1.5 x 2.3 cm. Normal arterial and venous blood flow is present bilaterally. There is no significant pelvic free fluid. US/US OB pelvic and transvaginal IMPRESSION: No demonstrated intrauterine gestational sac. A 1.2 cm heterogeneous (largely hypoechoic) structure associated with the right ovary remains nonspecific but does not demonstrate associated Doppler flow. This may represent a small hemorrhagic cyst. If beta-hCG levels do not trend as expected, follow-up ultrasound may be warranted to evaluate for change control analyst time. Electronically signed by: Cezar Julio DO 07/24/2024 12:51 AM EDT
[2024-07-23 20:56] VITALS: BP 147/86; PULSE 82; RESP 18; TEMP 37; O2SAT 99; BMI 29.0
--- NOTE | 2024-07-23 21:00 | ED_ITS ---
HPI - Female Genitourinary General Chief complaint: Vaginal Bleeding Stated complaint: ?Miscarriage Time Seen by Provider: 07/23/24 21:22 Source: patient Mode of arrival: ambulatory Limitations: no limitations History of Present Illness HPI Narrative: Patient is a 33-year-old female, history of 5 prior pregnancies with 6 living children at home (1 set of twins) no previous miscarriages or abortions. This would be her 6th , reporting her last menstrual period 06/10/2024, with home test positive on 01/17/2024. She reports that later that day she began having small amounts of vaginal bleeding that had progressed over the past few days. Today while at [facility] she began experiencing severe pain in her lower abdomen and her back. She reports that while in the waiting room she went to the bathroom and she passed ?a large amount of tissue or a fetus?, and has had resolution of her cramping since then. She continues to have some bleeding, ?like a. ?. She had not had any formal OB evaluation yet. Related Data Previous Rx's ?Medication ?Instructions ?Recorded cephalexin 500 mg capsule 500 mg PO Q6H 7 days #28 caps 08/11/22 Allergies Allergy/AdvReac Type Severity Reaction Status Date / Time No Known Allergies Allergy Mild NOT Verified 07/23/24 20:58 APPLICABLE Review of Systems 2 Review of Systems: Yes all other systems are reviewed and are negative PMFSH Past Medical History Attestation statement: The following information was validated with the patient. Source: old records reviewed Social History Social History Smoked in Last 30 Days: No Use of substances other than those prescribed or required for medical reasons: No Advance Directives: No Advance Directives Information Provided: No Do you have a plan to hurt others: No Plan Physical Exam 2 Vital Signs: Vital Signs: Last Vital Signs Temp 98.6 F 07/23/24 22:50 Pulse 82 07/23/24 22:50 Resp 18 07/23/24 22:50 BP 147/86 H 07/23/24 22:50 Pulse Ox 99 07/23/24 22:50 O2 Del Method Room Air 07/23/24 22:50 BMI result Body Mass Index 29.0 Appearance: Alert.?Oriented to person, place and time. No acute distress.?Normal affect. Eyes: Pupils equal, round and reactive to light.? ENT: Pharynx normal.?? Neck: Normal inspection.? Neck supple.?? CVS: Heart sounds normal. Normal heart rate and rhythm.? Pulses normal.?? Respiratory: No respiratory distress.? Lung sounds clear to auscultation bilaterally?? Abdomen: Soft and non-tender. Normoactive bowel sounds. Pelvic: Declines Skin: Skin warm and dry.? Normal skin color.? Extremities: No lower extremity edema.? Neuro: Moves all extremities spontaneously. Sensation intact bilaterally. CN II- XII intact. No focal neuro deficits. Ambulates with normal steady gait. Course Course Course Narrative: This is a rapid medical exam performed by Abby Arana PA-C. Patient is a 33-year-old female, who reports she is approximately 6 weeks , she tested positive at home. She has been having spotting over the past 5-6 days. However today, the bleeding has progressed, she is passing larger amounts of blood, and she thinks an embryo, that she took out of the toilet. Associated abdominal cramping. Patient is yet to establish care she has not had a formal ultrasound. Patient is extremely tearful, emotional. However she is stable. We will order a transvaginal ultrasound, type and screen with Rh factor, coagulation studies, basic labs and serum quant. We do not want the patient to return to the waiting room, we are trying to expedite her assessment. Medical Decision Making Medical Decision Making MDM Narrative: Patient is a 33-year-old female who presents emergency department for evaluation of lower abdominal/pelvic pain low back pain in the setting of vaginal bleeding with a recent positive test as per HPI. At the time of my evaluation she appears well she is requesting be discharged home. She reports ?I saw the ultrasound I know there was nothing in there?. She reports that she has had complete resolution of her abdominal and back pain at this time. She declines to have any pelvic examination performed. I reviewed serum labs obtained prior to my assumption of care CBC is without leukocytosis anemia or thrombocytopenia. No electrolyte derangement. No JESSICA. HCG is detectable at 185. She has a positive therefore would not require RhoGAM. Radiologist impression for her pelvic ultrasound is pending at this time, though I do not appreciate any evidence of intrauterine . Based on her reported history I suspect this is likely a spontaneous , Given she is entirely asymptomatic at this time I have a lower suspicion that this is an ectopic , however I did discuss with her the importance of following up with her OBGYN provider for further evaluation especially if she continues to have any symptoms including pain, bleeding, or any new or worsening concerns. Differential Diagnosis Differential Diagnoses: The differential diagnosis associated with the presentation includes (See narrative above) Admission/Observation Consideration of admission/observation: Escalation of care including admission/observation considered (See narrative above) Lab Data MDM Lab Attestation statement: I reviewed the patient's lab results. (See narrative above) 07/23/24 21:11 07/23/24 21:11 Labs: Lab Results 07/23/24 Range/Units 21:11 WBC 10.1 (4.8-10.8) X10*3/uL RBC 4.82 (4.20-5.50) X10*6/uL Hgb 13.6 (12.0-16.0) g/dl Hct 40.0 (37.0-47.0) % MCV 83.0 (80.0-98.0) fL MCH 28.2 (27.0-33.0) pg MCHC 34.0 (31.0-35.0) g/dl RDW 12.9 (11.0-16.0) % Plt Count TNP MPV Not Reportable Immature Gran % (Auto) 0.3 (0.0-0.4) % Neut % (Auto) 70.7 (45-73) % Lymph % (Auto) 21.7 (20-40) % [place] % (Auto) 4.2 (2-11) % Eos % (Auto) 2.3 (0-4) % Baso % (Auto) 0.8 (0-2) % Lymph # (Auto) 2.2 (1.2-4.9) X10*3/uL [place] # (Auto) 0.4 (0.1-1.2) X10*3/uL Eos # (Auto) 0.2 (0.0-0.4) X10*3/uL Baso # (Auto) 0.1 (0.0-0.2) X10*3/uL Abs Immat Gran (auto) 0.03 (0.00-0.03) X10*3/uL Absolute Neuts (auto) 7.2 (2.0-8.3) x10*3/uL Absolute Nucleated RBC 0.000 (0.0-0.012) X10*3/uL Nucleated RBC % (auto) 0.0 (0.0-0.2) /100WBC Smear Tech's Comments VERIFIED PT 10.2 L (10.9-12.4) SEC INR 0.9 (0.9-1.1) Sodium 137 (135-145) mmol/L Potassium 3.7 (3.3-5.1) mmol/L Chloride 107 (96-108) mmol/L Carbon Dioxide 24 (22-29) mmol/L Anion Gap 10 L (12-20) BUN 11 (9-16) mg/dL Creatinine 0.79 (0.5-1.4) mg/dL Estim Creat Clear Calc 107.0 Estimated GFR > 60 Random Glucose 108 (60-115) mg/dL Calcium 9.3 (8.4-10.2) mg/dL Magnesium 1.9 (1.6-2.6) mg/dL Total Bilirubin 0.2 (0.0-1.0) mg/dL AST 19 (5-31) U/L ALT 19 (0-31) U/L Alkaline Phosphatase 51 (39-117) U/L Total Protein 7.5 (6.5-8.0) g/dL Albumin 4.4 (3.5-5.0) g/dL Beta HCG, Quant 185 mIU/mL Blood Type A Positive Radiology Impression Discussion of test interpretation with radiology: I have reviewed the radiologist's reading. Radiologist Impression: US/US OB pelvic and transvaginal IMPRESSION: No demonstrated intrauterine gestational sac. A 1.2 cm heterogeneous (largely hypoechoic) structure associated with the right ovary remains nonspecific but does not demonstrate associated Doppler flow. This may represent a small hemorrhagic cyst. If beta-hCG levels do not trend as expected, follow-up ultrasound may be warranted to evaluate for twisting frame changer time. External Record Review External record reviewed: Outpatient record Discharge Plan Discharge Clinical Impression: Dysfunctional uterine bleeding Patient Disposition: Home, Self-Care Prescriptions: No Action cephalexin 500 mg capsule 500 mg PO Q6H 7 Days Qty: 28 0RF Referrals: Peggy Carcamo MD [Primary Care Provider] - Interventions: ED Discharge Assessment Last Done: 07/23/24 22:50 Discharge Date/Time: 07/23/24 22:51 Print Language: Polish
--- NOTE | 2024-07-23 21:20 | PC.NURSE ---
Patient away at ultrasound
[2024-07-23 21:21] LABS: Basophils Absolute Auto 0.1 X10*3/uL (0.0-0.2); Basophils Percent Auto 0.8 % (0-2); PLT CLUMP 1; SCAN SMEAR FLAG 1
[2024-07-23 21:23] LABS: Eosinophils Absolute Auto 0.2 X10*3/uL (0.0-0.4); Eosinophils Percent Auto 2.3 % (0-4); Hemoglobin 13.6 g/dl (12.0-16.0); Imm Gran Abs Auto 0.03 X10*3/uL (0.00-0.03); Imm Gran Pct Auto 0.3 % (0.0-0.4); Lymphocytes Absolute Auto 2.2 X10*3/uL (1.2-4.9); Lymphocytes Percent Auto 21.7 % (20-40); MANUAL DIFF FLAG SCAN; Mean Corpuscular Hemoglobin 28.2 pg (27.0-33.0); Monocytes Absolute Auto 0.4 X10*3/uL (0.1-1.2); Monocytes Percent Auto 4.2 % (2-11); Neutrophils Absolute Auto 7.2 x10*3/uL (2.0-8.3); Neutrophils Percent Auto 70.7 % (45-73); Red Blood Count 4.82 X10*6/uL (4.20-5.50); Red Cell Distribution Width 12.9 % (11.0-16.0)
[2024-07-23 21:39] LABS: INTERNATIONAL NORM RATIO 0.9 (0.9-1.1); Prothrombin Time 10.2 SEC (10.9-12.4)
[2024-07-23 21:40] LABS: Alanine Aminotransferase 19 U/L (0-31); Albumin Level 4.4 g/dL (3.5-5.0); Alkaline Phosphatase 51 U/L (39-117); Anion Gap 10 (12-20); Aspartate Amino Transferase 19 U/L (5-31); Bilirubin Total 0.2 mg/dL (0.0-1.0); Blood Urea Nitrogen 11 mg/dL (9-16); Calcium 9.3 mg/dL (8.4-10.2); Carbon Dioxide 24 mmol/L (22-29); Chloride 107 mmol/L (96-108); Estimated Glomerular Filt Rate > 60; Glucose Random 108 mg/dL (60-115); HCG Quantitative 185 mIU/mL; Magnesium 1.9 mg/dL (1.6-2.6); Potassium 3.7 mmol/L (3.3-5.1); Sodium 137 mmol/L (135-145); Total Protein 7.5 g/dL (6.5-8.0)
--- OUTSIDE RECORDS SUMMARY | 2024-07-23 21:41 | XMS_ITS | Continuity of Care Document ---
Author Organization [facility] Address [address] [place] [id number]- Care Team Providers Care [employer] General Car Supervisor Name Role Phone Angelica Cantu MD, Roberta Vang Primary Care Physici an Encounter [facility] [place](s): 09/06/22 - 10/06/22 [facility] [address] [address]- Allergies, Adverse Reactions, Alerts No Known Allergies Medications aspirin 81 mg oral delayed release tablet See Instructions, 2 tablet By Mouth at night Please begin to take at 12 weeks of ., # 60 tablet, 0 Refills, Maintenance, 08/02/22 10:27:00 EDT, CR Tablet, [id number], Partial fill upon patient request if the prescription is for a gunjan... Start Date: 08/02/22 Status: Ordered Multivitamins with Folic Acid 5 mg oral kit 0 Refills, Maintenance, 09/15/22 14:28:00 EST, Partial fill upon patient request if the prescription is for a schedule II opioid drug. Start Date: 09/15/22 Status: Ordered Plus oral tablet 1 tablet, By Mouth, Daily, 0 Refills, Maintenance, 09/15/22 14:28:00 EST, Partial fill upon patientrequest if the prescription is for a schedule II opioid drug. Start Date: 09/15/22 Status: Ordered progesterone 200 mg vaginal suppository 1 supp = 200 mg, Vaginally, Daily at bedtime, # 30 supp, 6 Refills, Maintenance, 09/15/22 15:18:00 EST, Suppository, [id number], Partial fill upon patient request if the prescription is for aschedule II opioid drug., 160, cm, 09/15/22 14:04:0... Start Date: 09/15/22 Status: Ordered Prometrium 200 mg oral capsule See Instructions, Place one capsule vaginally every night from 16-36 weeks gestation, # 30 capsule,3 Refills, Maintenance, 10/06/22 18:00:00 EST, [id number], Partial fill upon patient request if the prescription is for a schedule II opioid . 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 Pt informed of N services - pt reports will notify office if she feels BHN services are needed. 3Pt reports she was informed by [place] [employer] she has a short cervix. 4Per [facility] [employer] chart scanned in [facility] with date of 05/09/2018 5PTD@ 29w GA of twins 6Pt reports use of progesterone RX IM with . 8Per [facility] [employer] chart scanned in [facility] with date of 05/09/2018 9Per [facility] [employer] chart scanned in [facility] with date of 05/09/2018 Social History Social History Type Response Smoking Status Never (less than 100 in lifetime) entered on: 02/18/21 Sex Patient Care team information Care Team Personnel Name: Angelica Cantu MD, Roberta Vagn Position: [facility] Outreach Member Role: PCP Address: Address: [address] [place] [address] [address] [place] [address]- Name: Damien Baires MD Position: [facility] Renal MD Member Role: Lifetime Consulting Physician Address: Address: [address] [place] [address], [address] [facility] [place] [address]- Name: Musa Blue RN Position: [facility] OB RN Member Role: Primary Care Nurse Name: Juan Antonio Powell RN Position: S RN Member Role: Primary Care Nurse Name: Eduardo Carr MD Position: [facility] Renal MD Member Role: Lifetime Consulting Physician Address: Address: [address] [place] [address] [address] [facility] [place] [place] [address]- Care Team Related Persons Name: PHONGCLEMENT Address: [id number] Address: [address] [place] [address] [place] Address: temporary 0 Name: TASHA DARLING Address: [id number] Address: [address] [place] [address] [place] Address: temporary 0 Name: PUNEET VELASCO Address: [address] [place] [address]
--- OUTSIDE RECORDS SUMMARY | 2024-07-23 21:41 | XMS_ITS | Continuity of Care Document ---
Author Organization [facility] ter Address [address] [place] [id number]- Care Team Providers Care Coat Presser Name Role Phone Angelica Cantu MD, Roberta Vang Primary Care Physici an Encounter [facility] Date(s): 11/26/22 - 11/26/[address] [address]- Discharge Disposition: A-D/C Home Attending Physician: Sierra Szymanski MD Admitting Physician: Sierra Szymanski MD Referring Physician: Sierra Szymanski MD Allergies, Adverse Reactions, Alerts No Known Allergies [...] 30 capsule,3 Refills, Maintenance, 10/06/22 18:00:00 EST, [facility]/pharmacy #[id number], Partial fill upon patient request if the prescription is for a schedule II opioid Start Date: 10/06/22 Status: Ordered Problem List Condition Confirmation Course Effective Dates Status H ealth Status Informant H/O Abnormal Pap smear of cervix 1 Confirmed Active Environmental and seasonal allergies Confirmed Active H/O Anxiety 2 Confirmed Active H/O Chlamydia Confirmed 2018 Active Short cervix 3 Confirmed Active 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 Pt informed of BHN services - pt reports will notify office if she feels BHN services are needed. 3Pt reports she was informed by [facility] TRAM INSPECTOR she has a short cervix. 4Per [facility] TRAM INSPECTOR chart scanned in CIS with date of 05/09/2018 5PTD@ 29w GA of twins 6Pt reports use of progesterone RX IM with . 8Per [facility] TRAM INSPECTOR chart scanned in CIS with date of 05/09/2018 9Per [facility] TRAM INSPECTOR chart scanned in CIS with date of 05/09/2018 Vital Signs Most recent to oldest [Reference Range]: 1 Weight 69.8 kg (11/26/22 7:36 AM) Oxygen Saturation [94-100 %] 99 % (11/26/22 7:37 AM) Blood Pressure [90-138/55-84 mm Hg] 127/ 68mm Hg (11/26/22 7:37 AM) Respiratory Rate [16-30 br/min] 18 br/mi n (11/26/22 7:37 AM) Temperature [96.8-100.4 DegF] 98.2 DegF (11/26/22 7:36 AM) Mode of Delivery (Oxygen) Room air (11/26/22 7:37 AM) Blood pressure sites Arm, right (11/26/22 7:37 AM) Temperature Route Oral (11/26/22 7:36 AM) Weight Obtained Via Standing scale (11/26/22 7:36 AM) Social History Social History Type Response Smoking Status Never (less than 100 in lifetime) entered on: 02/18/21 Sex History and physical note * Alexandra Nguyen DO: PERFORM Event Display: History and Physical Hospital Authored Date: [id number] 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 Age:??32 Years?Sex:??Female?:??1990?? LMP/EGA/EL Gestational Age (EGA) and EL? * Note: EGA calculated as of 11/26/2022 ?? EL:??03/12/2023?EGA*:??24 weeks 6 days ? History?(2,2,0,5)?Method:??Last Menstrual Period??(06/05/2022) History of Present Illness Patient is a 32 year old @ 24+6 weeks gestation presenting with complaints of bright red bleeding that she noted around 4AM??after intercourse. She states she noted bright red vaginal bleeding and cramping??and that there was a?? large amount of blood immediately afterwards. She states thebleeding is similar to a menstrual period and complains of cramping. She continues to feel movement. Review of Systems All systems reviewed and negative except as noted above in HPI. Physical Exam Vitals & Measurements T:??98.2?F ?? HR:??71(Monitored)?? RR:??18?? BP:??127/68?? SpO2:??99%?? WT:??69.8??kg?? General:??pleasant, alert, cooperative, NAD Abdominal:??Soft, non-tender. Speculum:??Normal appearing perineum, vulva, urethral meatus, vaginal and cervical mucosa, no lesions appreciated,??no blood in vaginal??vault. No bleeding, clot or tissue noted form??cervical os, osvisually closed,??multiparus-appearing cervix. Bimanual:??Cervix closed. No CMT. Extremities:??Symmetrical muscle bulk, no visible erythema or edema.?? Psych:??Mood and affect stable, appearance appropriate, good eye contact, talkative.?Bedside ultrasound:??subjectively normal fluid OB Assessment Cervical Cervical Dilatation0 cm Non Stress Test Baseline: 140 bpm Variability: Moderate Acceleration: Present, 2 or more Deceleration: Occasional variable Contractions: Absent (besides 1 or 2 occasional ctx) NST Reactive: Yes Assessment/Plan Assessment:??Patient is a 32 year old @ 24+6 weeks gestation presenting with complaints of bright red bleeding that she noted around 4AM after intercourse. Vitals are wnl and there is no bleeding on exam, no brown discharge or any other abnormal discharge??noted, cervix is closed. Wet prep negative, GCCT collected. Bedside US with subjectively normal fluid, appropriate movement. Recent PDC US shows no concern for previa or low lying placenta. Return precautions including another occurrence of large volume postcoital bleeding, contractions, loss of fluid, severe abdominal plain, DFM. She is planning to move to [facility] soon to be with her FOB, but does not have a set date yet, and she will plan to continue to follow up with [facility] in the meantime. ?? (Z34.90):?? Reactive NST for gestational age Next DIXON 12/16 ?? Vaginal bleeding in (O46.90):?? Rh neg (p) UA and GCCT no bleeding on exam return precautions discussed ?? Patient seen and discussed with Dr. Storey. OB History History?(2,2,0,5)? # 1 ?Baby 1 ?Outcome Date:??2006 ?Outcome or Result:??Vaginal ?Gest Age:??38 weeks 4 days ? Outcome:??Live ? Sex:??Male?Wt:?2750 g ?Maternal Complications:??Gestational diabetes; Pre-eclampsia ?Hospital:??[facility] ?? # 2 ?Baby 1 ?Outcome Date:??2008 ?Outcome or Result:??Vaginal ?Gest Age:??36 weeks 5 days ? Outcome:??Live ? Sex:??Female?Wt:?2920 g ?Hospital:??[facility] ?? # 3 ?Baby 1 ?Outcome Date:??2010 ?Outcome or Result:??Vaginal ?Gest Age:??38 weeks ? Outcome:??Live ? Sex:??Female?Wt:?2778 g ?Hospital:??[facility] ?? # 4 ?Baby 1 ?Outcome Date:??05/05/2018?Outcome or Result:??, low transverse ?Gest Age:??29 weeks 2 days ? Outcome:??Live ? Sex:??Male?Wt:?1230 g ?Hospital:??[facility] ?Baby 2 ?Outcome Date:??05/05/2018?Outcome or Result:??, low transverse ?Gest Age:??29 weeks 2 days ? Outcome:??Live ? Sex:??Female?Wt:?1107 g Labs Labs Labs & Tests Antibody Screen: Negative (08/08/22) Creatinine-Blood: 0.8 mg/dL (08/08/22) Down Syndrome Age Risk FTS: Age Risk: (08/29/22) Down Syndrome Scrn Risk FTS: Screening Risk: (08/29/22) Glucose 50 Gm, +60 Minutes: 92 mg/dL (08/17/22) Hct: 43 % (08/08/22) Hemoglobinopathy Interpretation: Normal hemoglobins. (08/08/22) Hepatitis B Surface Antigen: NEGATIVE (08/08/22) Hepatitis C Ab: NEGATIVE (08/08/22) Hgb: 13.8 Gm/dL (08/08/22) HIV 4th Generation Ab-Ag Result: NEGATIVE (08/08/22) RPR Titer Result: NOT INDICATED (08/08/22) Rubella IgG Ab: EQUIVOCAL (08/08/22) Syphilis Screen by TRA[facility]: NEGATIVE (08/08/22) Trisomy 18 Scrn Risk FTS: Screening Risk: (08/29/22) Urine Culture: Urine Culture (08/08/22) Problem List Active Active Problem List COVID-19 vaccine series completed: (Medical) Current smoker: (Medical) Environmental and seasonal allergies: (Medical) Genital HSV: (Medical) Per [facility] TRAM INSPECTOR chart scanned in CIS with date of 05/09/2018 (11/01/17) H/O ??(GDM): (Medical) (11/01/05) H/O Abnormal Pap smear of cervix: (Medical) Per [facility] TRAM INSPECTOR chart scanned in CIS with date of 05/09/2018 H/O Anxiety: (Medical) Pt reports in not engaged with mental health services currently but is mananging ok at present. ??Pt informed of N services - pt reports will notify office if she feels BHN services are needed. H/O delivery: (Medical) PTD@ 29w GA of twins (11/01/17) H/O Chlamydia: (Medical) (11/01/17) H/O Gestational hypertension: (Medical) H/O Preeclampsia: (Medical) Per [facility] TRAM INSPECTOR chart scanned in CIS with date of 05/09/2018 (11/01/05) H/O PTD: (Medical) Pt reports use of progesterone ??RX IM with . (11/01/07) H/O thrombocytopenia in : (Medical) Per [facility] TRAM INSPECTOR chart scanned in CIS with date of 05/09/2018 (11/01/17) H/O Varicella as a child: (Medical) : (Obstetric) (06/05/22) Short cervix: (Medical) Pt reports she was informed by [facility] TRAM INSPECTOR she has a short cervix. Procedure/Surgical History Liposuction: 2020 delivery only;: 05/05/18 Colposcopy: 2009 Home Medications Aspirin: See Instructions, 2 tablet By Mouth at nightPlease begin to take at 12 weeks of . Multivitamin, : 1 tablet, By Mouth, Daily Multivitamin, Progesterone: 200 mg = 1 supp, Vaginally, Daily at bedtime Progesterone: See Instructions, Place one capsule vaginally every night from 16- 36 weeks gestation Allergies NKA Social History Alcohol Use: Never., 02/18/2021 Electronic Cigarette/Vaping Electronic Cigarette Use: Never., 02/18/2021 Employment/School Status: Employed., 02/26/2021 Exercise Self assessment: Fair condition., 02/26/2021 Home/Environment Living situation: Home/Independent. Lives with: Children, Significant other., 08/02/2022 Nutrition/Health Diet: Regular., 08/02/2022 Sexual Sexually involved in last 6 months: Yes., 08/02/2022 Substance Abuse Use: Never., 02/18/2021 Tobacco Use: Never (less than 100 in lifetime)., 02/18/2021 Family History Mother: Fibromyalgia Plan OB Plan Circumcision Plan: None (11/26/22) Infant Feeding Plan: Breast milk (11/26/22) Patient Requests: [facility] - [facility] (11/26/22) * [place] DOZIER, Ann: PERFORM Event Display: History and Physical Hospital Authored Date: [id number] Attending Attestation: I have seen and evaluated this patient.?? I have discussed the case and its management with the resident and agree with the findings and plan as documented in the resident???s note. ?? Ann Storey MD Note * Darlene Krishna RN: PERFORM Event Display: Discharge/Transfer Note Hospital Authored Date: [id number] Nursing Discharge Note Entered On: 11/26/2022 9:48 EST Performed On: 11/26/2022 9:45 EST by Darlene Krishna RN Nursing Discharge Note 2 Discharge Time : 11/26/2022 9:45 EST Discharge Level of Care at Discharge : Home/[facility] Care Patient Left Unit Via : Ambulatory Patient Accompanied Off Unit with : Other: self DC Instructions Provided & Signed by Pt : Yes Patient Understands D/C Instructions : Yes Patient Instructions Discharge Signed : Yes Did Pt have Specialty Bed or Wound Vac : No Darlene Krishna RN - 11/26/2022 9:47 EST * Darlene Krishna RN: PERFORM Event Display: Patient Education/Instruction Authored Date: [id number] Inpatient Adult Discharge Instructions [address] [id number] Name: GURJIT ROACH : 1990 Visit: 11/26/2022 07:04:00 Current Date: 11/26/2022 09:03 Account: [id number] Inpatient Adult Discharge Instructions We would like to thank you for allowing us to assist you with your healthcare needs. The following includes patient education materials and information regarding your injury/illness. Our entire staffstrives to provide an excellent experience for our patients and their families. PLEASE ENSURE YOU FOLLOW-UP PER THE INSTRUCTIONS BELOW! ?? YOUR OPINION IS IMPORTANT TO US! Please complete the survey you may receive by mail or email. Your feedback will be used to make improvements to the healthcare experiences of our patients and their families. Surveys are administered by [employer]. ?? If further treatment with your primary care physician or another doctor is recommended, it is important for you to keep the appointment. Call your primary care physician or return to the Emergency Department immediately if your condition worsens, fails to improve, or new symptoms develop. If you need to find a doctor, you can call [facility] [employer] for a referral at [phone] or toll free at [phone]) or log in to [email or web address].. ?? You can view and manage your care through the patient portal or by using a health care dorinda of your choosing. [employer] is a website that allows you to securely view your medical information including your hospital discharge summary, office visit summaries, medications and follow-up visits. You can also request appointments, renew medications, and request access to your medical information using a health care dorinda of your choosing, or just ask a question. You can enroll at [email or web address] or register during your next office visit. You have been discharged from [facility], Patient Care Unit: [id number]. If you have any questions regarding these instructions after you leave, please call us and we will be happy to assist you. [facility] Your Care Team Attending Physician Stephon DOZIER, Sierra Armstrong Your Diagnosis Vaginal bleeding in Tests Performed Below is a partial list of the tests performed during your hospitalization. You may have had other tests and procedures not included in this list. Please discuss all test results with your provider. Chlamydia/N. Gonorrhoeae TMA (NAAT)?-- Results Pending -- Complete Urinalysis?-- Results Pending -- ? You will be contacted within 72 hours with your results. Primary Care Provider Angelica Cantu MD, Roberta Vang Advance Directive Health Care Proxy on File Yes - Health Care Proxy Discharge Vitals Temperature: 98.2 DegF Weight: 69.8 kg Respiratory Rate: 18 br/min ?? Systolic Blood Pressure: 127 mm Hg ?? Diastolic Blood Pressure: 68 mm Hg ?? Oxygen Saturation: 99 % ?? Studies Pending All tests and labs ordered during this hospital stay have been completed unless listed below. Please discuss all pending results with your provider listed above in these instructions. ?? Chlamydia/N. Gonorrhoeae TMA (NAAT) Complete Urinalysis What to do next Instructions From Your Doctor Discharge Orders Scheduled Follow-Up Appointments Monday 8:40 AM EDT ?? With: Ester Paiz DO Where: [facility] - Shelter Supervisor [address] [place] [address]- Monday 8:00 AM EDT ?? With: Darlene Carl CNM Where: [facility] - Shelter Supervisor [address] [place] [address]- Monday 8:40 AM EDT ?? With: Darlene Carl CNM Where: [facility] - Shelter Supervisor [address] [place] [address]- You Need to Schedule the Following Appointments Follow Up with??[facility] [phone] When?? Follow Up with??Ester Paiz DO When?? Why: Please keep scheduled appointment with on 12/16/22. If you have any questions or concerns prior to appointment please call the office or follow up in [facility]. Where: [address] [place], [place] [address] [place] [address]- Discharge Medications GURJIT ROACH :1990 Visit Date:11/26/2022 Medications: Please continue your medications until treatment is completed or stopped by your provider. Medications not listed below should be discontinued. Discuss any questions related to medications with your provider. What How Much When Why Instructions Next Dose Unchanged Aspirin (aspirin 81 mg oral delayed releasetablet) See instructions 2 tablet By Mouth at night Please begin to take at 12 weeks of . ?? Unchanged Multivitamin, ( Multivitamins with Folic Acid 5 mg oral kit) Unchanged Multivitamin, ( Plus oral tablet) 1 tab(s) Oral Daily Unchanged Progesterone (progesterone 200 mg vaginal suppository) 1 suppository(ies) Vaginally Daily at Bedtime H/O Abnormal Pap smear of cervix Unchanged Progesterone (Prometrium 200 mg oral capsule) See instructions Place one capsule vaginally every night from 16-36 weeks gestation ?? Test Results Below is a partial list of the most recent Laboratory test results done prior to this discharge. You may have had other tests and procedures not included in this list. Please discuss all test resultswith your provider. Allergies (NKA means No Known Allergies) NKA Problems Active Problems??(16) COVID-19 vaccine series completed?? Current smoker?? Environmental and seasonal allergies?? Genital HSV?? H/O ??(GDM)?? H/O Abnormal Pap smear of cervix?? H/O Anxiety?? H/O delivery?? H/O Chlamydia?? H/O Gestational hypertension?? H/O Preeclampsia?? H/O PTD?? H/O thrombocytopenia in ?? H/O Varicella as a child? Short cervix?? Education Materials Below is the list of Educational Leaflet Providered with your Discharge Instructions. : Your Second Trimester Changes?? Comfort Tips During ?? Bleeding During Early ?? Valuables and Belongings I fully understand and agree that [facility] accepts no responsibility for all my personal property including clothing, toilet articles, radios, jewelry, dentures, hearing aids, rings, money, or any other property that is in my possession or is brought to me after admission. I understand certain valuables may be placed in a hospital safe for a short period of time. I understand that the hospital is not liable for loss or damage due to accident, fire, or other natural occurrence while said property is in the safe. I accept full responsibility for any personal property that I keep with me, and will not hold the hospital responsible in case of loss or disappearance. I acknowledge that i have been encouraged to send valuables and belongings home. ? Other Discharge Information ? Pulmonary Rehab Status?? Pulmonary Rehab Discharge Status?? Respiratory Rate: 18 br/min ? Common Emergency Awareness Tips IS IT A STROKE? Act FAST and Check for these signs: FACE Does the face look uneven? ARM Does one arm drift down? SPEECH Does their speech sound strange? TIME Call at any sign of stroke ?? Heart Attack Signs Chest discomfort: Most heart attacks involve discomfort in the center of the chest and lasts more than a few minutes, or goes away and comes back. It can feel like uncomfortable pressure, squeezing, fullness or pain. Discomfort in upper body: Symptoms can include pain or discomfort in one or both arms, back, neck, jaw or stomach. Shortness of breath: With or without discomfort. Other signs: Breaking out in a cold sweat, nausea, or lightheaded. Remember, MINUTES DO MATTER. If you experience any of these heart attack warning signs, call to get immediate medical attention! ?? Smoking can increase your chances of developing chronic health problems and can cause harmful effects to other family members in your house. If you smoke, you are strongly encouraged to quit. Please call [facility] [employer] Link at [phone] or [phone] ([phone]) or log in to [email or web address] [email or web address] for referrals to smoking cessation programs. ?? The National Suicide Prevention Hotline is available 24/04 if you or someone you know needs to find a reason to keep living. By calling 4-396-612-[employer] (0083) you'll be connected to a skilled, trained counselor at a crisis center in your area. INPATIENT DISCHARGE INSTRUCTIONS SIGNATURE PAGE DOCGURJIT Location:[facility] Registration Date and Time:11/26/2022 07:04 [facility] Primary Care Physician: Angelica Cantu MD, Roberta Vang, I GURJIT ROACH, have received the above patient education materials/instructions and have verbalized understanding. If ambulance or transport services are being used I further acknowledge being given a choice of service. ?? If you need to contact me, please call me at this number: . Patient/Hand Collator Name: Patient/Hand Collator Signature: Relationship to Patient: Witness Name/Signature: Date: * Darlene Krishna RN: PERFORM Event Display: Patient Education Leaflets Authored Date: [id number] Premature Labor ?? [id number] Premature Labor Premature labor ( labor) is when symptoms of labor occur before 37 weeks of . (Thisis 3 weeks before your due date.) Premature labor can lead to premature delivery. This means givingbirth to your baby early. Babies need at least 37 weeks of for all the organs to develop normally. The earlier the delivery, the greater the risks to the baby. In most cases, the cause of premature labor is unknown. But certain factors may make the problem more likely. These include: ??? History of premature labor with other pregnancies ??? Smoking ??? Alcohol or substance abuse ??? Low prepregnancy weight or weight gain during ??? Short time period between pregnancies ??? Being with twins, triplets, or more ??? History of certain types of surgery on the cervix or uterus ??? Having a short cervix ??? Certain infections There are a number of other risk factors. Ask your healthcare provider to help you understand the risk factors specific to your case. Then find out what you can do to control or reduce them. Contractions are one of the main signs of premature labor. A contraction is different from cramping. It may feel painful and the belly (abdomen) may get hard. It can last from a few seconds to a few minutes. Some women may feel only a sense of pressure in the belly, thighs, rectum, or vagina. Some may feel only the hardening of the uterus without pain or pressure. Or there may be a constant pain in the lower back, which spreads forward toward the belly. Premature labor is often treated with medicines.??A hospital stay may be needed. If labor doesn't progress and you and your baby are both healthy, you may be discharged to continue care at home. Home care ??? Ask your provider any questions you have. Be certain you understand how to care for yourself at home. Also follow all recommendations given by your healthcare providers. ??? Learn the signs of premature labor.??Watch for these signs when you get home. ??? Limit or restrict activities as advised. This may include stopping certain physical activities and cutting back hours at work. ??? Don't do strenuous work as advised by your provider.??Ask family and friends for help with tasks and support at home, if needed. ??? Don???t smoke, drink alcohol, or use other harmful substances. ??? Take steps to reduce stress. ??? Report any unusual symptoms to your provider. ?? Follow-up care Follow up with your healthcare provider directed.??Weekly visits with your provider may be needed. ?? When to seek medical advice Call your healthcare provider right away if any of these occur: ??? Regular or frequent contractions, whether they're painful or not ??? Pressure in the pelvis ??? Pressure in the lower belly or mildcramping in your belly with or without diarrhea ??? Constant low, dull backache ??? Gush or slow leaking of water from your vagina ??? Change in vaginal discharge (watery, mucus, or bloody) ??? Any vaginal bleeding ??? Decreased movement of your baby ?? Last Reviewed Date: 2021 ?? [employer]. All rights reserved. This information is not intended as a substitute for professional medical care. Always follow your healthcare professional's instructions. ?? * Darlene Krishna RN: PERFORM Event Display: Patient Education Leaflets Authored Date: [id number] Premature Labor ?? [id number] Premature Labor Premature labor ( labor) is when symptoms of labor occur before 37 weeks of . (Thisis 3 weeks before your due date.) Premature labor can lead to premature delivery. This means givingbirth to your baby early. Babies need at least 37 weeks of for all the organs to develop normally. The earlier the delivery, the greater the risks to the baby. In most cases, the cause of premature labor is unknown. But certain factors may make the problem more likely. These include: ??? History of premature labor with other pregnancies ??? Smoking ??? Alcohol or substance abuse ??? Low prepregnancy weight or weight gain during ??? Short time period between pregnancies ??? Being with twins, triplets, or more ??? History of certain types of surgery on the cervix or uterus ??? Having a short cervix ??? Certain infections There are a number of other risk factors. Ask your healthcare provider to help you understand the risk factors specific to your case. Then find out what you can do to control or reduce them. Contractions are one of the main signs of premature labor. A contraction is different from cramping. It may feel painful and the belly (abdomen) may get hard. It can last from a few seconds to a few minutes. Some women may feel only a sense of pressure in the belly, thighs, rectum, or vagina. Some may feel only the hardening of the uterus without pain or pressure. Or there may be a constant pain in the lower back, which spreads forward toward the belly. Premature labor is often treated with medicines.??A hospital stay may be needed. If labor doesn't progress and you and your baby are both healthy, you may be discharged to continue care at home. Home care ??? Ask your provider any questions you have. Be certain you understand how to care for yourself at home. Also follow all recommendations given by your healthcare providers. ??? Learn the signs of premature labor.??Watch for these signs when you get home. ??? Limit or restrict activities as advised. This may include stopping certain physical activities and cutting back hours at work. ??? Don't do strenuous work as advised by your provider.??Ask family and friends for help with tasks and support at home, if needed. ??? Don???t smoke, drink alcohol, or use other harmful substances. ??? Take steps to reduce stress. ??? Report any unusual symptoms to your provider. ?? Follow-up care Follow up with your healthcare provider directed.??Weekly visits with your provider may be needed. ?? When to seek medical advice Call your healthcare provider right away if any of these occur: ??? Regular or frequent contractions, whether they're painful or not ??? Pressure in the pelvis ??? Pressure in the lower belly or mildcramping in your belly with or without diarrhea ??? Constant low, dull backache ??? Gush or slow leaking of water from your vagina ??? Change in vaginal discharge (watery, mucus, or bloody) ??? Any vaginal bleeding ??? Decreased movement of your baby ?? Last Reviewed Date: 2021 ?? [id number] [employer]. All rights reserved. This information is not intended as a substitute for professional medical care. Always follow your healthcare professional's instructions. ?? * Darlene Krishna RN: PERFORM Event Display: Patient Education Leaflets Authored Date: [id number] : Your Second Trimester Changes ?? 17122 : Your Second Trimester Changes Each day, you and your baby are changing and growing together. Here???s a quick look at what???s happening to both of you. How you are changing Even when you don???t notice it, your body is adapting to meet the needs of your growing baby. The changes in your body might also affect your moods. ?? Your body Your uterus expands as your baby grows. As the weeks go by, you will feel more pressure on your bladder, stomach, and other organs. You may notice some skin color changes on your forehead, nose, or cheeks. Freckles may darken, and moles may grow. You may notice a darker line on your abdomen betweenyour belly button and pubic bone in the midline. ?? Your moods The second trimester is often easier than the first. Still, be prepared for mood swings. These are from the increase in hormones made by your body. Hormones are chemicals that affect the way organs work. These mood swings are a normal part of . ?? How your baby is growing ?? Month 4 Your baby???s heartbeat may be heard with a Doppler (handheld ultrasound device) by 9 to 10 weeks.??Eyebrows, eyelashes, and fingernails begin to form. ?? Month 5 You may feel your baby move. After a growth spurt, your baby nears 10 inches. ?? Month 6 Your baby???s fingerprints have formed. Your baby weighs about 1??to 2 pounds and is about 12 inches long. ?? Last Reviewed Date: 2021 ?? [id number] [employer]. All rights reserved. This information is not intended as a substitute for professional medical care. Always follow your healthcare professional's instructions. ?? Patient Care team information Care Team Personnel Name: Roberta Parker MD Position: [facility] Outreach Member Role: PCP Address: Address: [address] [place] [address]- Name: Damien Baires MD Position: [facility] Renal MD Member Role: Lifetime Consulting Physician Address: Address: [address] [place] [address], [address] [facility] [place] [address]- Name: Musa Blue RN Position: [facility] OB RN Member Role: Primary Care Nurse Name: Juan Antonio Powell RN Position: [facility] RN Member Role: Primary Care Nurse Name: Eduardo Carr MD Position: [facility] Renal MD Member Role: Lifetime Consulting Physician Address: Address: [address] [place] [address] [address] [facility] [place] [address]- Care Team Related Persons Name: CLEMENT DARLING Address: [address] Address: [address] [place] [address] [place] Address: temporary 0 Name: TASHA DARLING Address: [address] Address: [address] [place] [address] [place] Address: temporary 0 Name: NO, ONE Name: PUNEET VELASCO Address: [address] [place] [address]
--- OUTSIDE RECORDS SUMMARY | 2024-07-23 21:41 | XMS_ITS | Continuity of Care Document ---
Author Organization [facility] Address [address] [place] [address]- Care Team Providers Care Missionary Coordinator Name Role Phone Angelica Cantu MD, Roberta Vang Primary Care Physici an Encounter [facility] [place] Date(s): 01/13/23 - 02/12/23 [facility] [address] [address]- Attending Physician: Stew Campbell Admitting Physician: AdmStew javier Referring Physician: AdmtrStew Allergies, Adverse Reactions, Alerts No Known Allergies Medications aspirin 81 mg oral delayed release tablet See Instructions, 2 tablet By Mouth at night Please begin to take at 12 weeks of ., # 60 tablet, 0 Refills, Maintenance, 08/02/22 10:27:00 EDT, CR Tablet, [id number], Partial fill upon patient request if the [...] 30 capsule,3 Refills, Maintenance, 10/06/22 18:00:00 EST, [id number], Partial fill upon patient request if the prescription is for a schedule II opioid [email or web address] Start Date: 10/06/22 Status: Ordered Problem List Condition Confirmation Course Effective Dates Status H ealth Status Informant H/O Abnormal Pap smear of cervix 1 Confirmed Active Environmental and seasonal allergies Confirmed Active H/O Anxiety 2 Confirmed Active H/O Chlamydia Confirmed 2018 Active 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 Pt informed of N services - pt reports will notify office if she feels N services are needed. 3Per [facility] SALES FORCE ADMINISTRATOR chart scanned in CIS with date of 05/09/2018 4PTD@ 29w GA of twins 5Pt reports use of progesterone RX IM with . 7Per [facility] SALES FORCE ADMINISTRATOR chart scanned in CIS with date of 05/09/2018 8Per [facility] SALES FORCE ADMINISTRATOR chart scanned in CIS with date of 05/09/2018 Social History Social History Type Response Smoking Status Never (less than 100 in lifetime) entered on: 02/18/21 Sex Laboratory * Event Display: Non BH Lab Results Authored Date: Patient Care team information Care Team Personnel Name: Roberta Parker MD Position: [facility] Outreach Member Role: PCP Address: Address: [address] [facility] [address] [place] [address]- [place] Name: Damien Baires MD Position: [facility] Renal MD Member Role: Lifetime Consulting Physician Address: Address: [address] [facility], [address] [facility] [place] [address]- [place] Name: Musa Blue RN Position: [facility] OB RN Member Role: Primary Care Nurse Name: Juan Antonio Powell RN Position: S RN Member Role: Primary Care Nurse Name: Neo Cox RN Position: [facility] SN RN Member Role: Primary Care Nurse Name: Eduardo Carr MD Position: [facility] Renal MD Member Role: Lifetime Consulting Physician Address: Address: [address] [place] [address] [address] [facility] [place], [place] [address]- Care Team Related Persons Name: CLEMENT DARLING Address: [address] Address: [address] [place] [address] [place] Address: temporary 0 Name: PHONG TASHA Address: [address] Address: [address] [place] [address] [place] Address: temporary 0 Name: NO, ONE Name: PUNEET VELASCO Address: [address] [place] [address]
--- OUTSIDE RECORDS SUMMARY | 2024-07-23 21:41 | XMS_ITS | Continuity of Care Document ---
Author Organization [facility] Address [address] [place] [address]- Care Team Providers Care Design Draftsman Name Role Phone Angelica Cantu MD, Roberta Vang Primary Care Physici an Encounter [facility] [place] Date(s): 09/15/22 - 11/20/22 [facility] [address] [address]- Attending Physician: Darlene Carl CNM Admitting Physician: Darlene Carl CNM Allergies, Adverse Reactions, Alerts No Known Allergies [...] 30 capsule,3 Refills, Maintenance, 10/06/22 18:00:00 EST, [facility]pharmacy #[id number], Partial fill upon patient request if the [...] Confirmed Active Current smoker Confirmed Active 1Per [facility] PATTERNMAKER SAMPLE chart scanned in CIS with date of 05/09/2018 2Pt reports in not engaged with mental health services currently but is mananging ok at present. Pt informed of N services - pt reports will notify office if she feels N services are needed. 3Pt reports she was informed by [place] PATTERNMAKER SAMPLE she has a short cervix. 4Per [facility] PATTERNMAKER SAMPLE chart scanned in CIS with date of 05/09/2018 5PTD@ 29w GA of twins 6Pt reports use of progesterone RX IM with . 8Per [facility] PATTERNMAKER SAMPLE chart scanned in CIS with date of 05/09/2018 9Per [facility] PATTERNMAKER SAMPLE chart scanned in CIS with date of 05/09/2018 Social History Social History Type Response Smoking Status Never (less than 100 in lifetime) entered on: 02/18/21 Sex Patient Care team information Care Team Personnel Name: Roberta Parker MD Position: S Outreach Member Role: PCP Address: Address: [address] [place] [address] [address] [place] [address]- [place] Name: Damien Baires MD Position: [facility] Renal MD Member Role: Lifetime Consulting Physician Address: Address: [address] [facility], [address] [facility] [place] [address]- Name: Musa Blue RN Position: [facility] OB RN Member Role: Primary Care Nurse Name: Juan Antonio Powell RN Position: [facility] RN Member Role: Primary Care Nurse Name: Eduardo Carr MD Position: [facility] Renal MD Member Role: Lifetime Consulting Physician Address: Address: [address] [place] [address] [address] [facility] [place], [place] [address]- Care Team Related Persons Name: CLEMENT DARLING Address: [address] Address: [address] [place] [address] [place] Address: temporary 0 Name: TASHA DARLIGN Address: [address] Address: [address] [place] [address] [place] Address: temporary 0 Name: NO, ONE Name: PUNEET VELASCO Address: [address] [place] [address]
--- OUTSIDE RECORDS SUMMARY | 2024-07-23 21:41 | XMS_ITS | Continuity of Care Document ---
Author Organization [facility] Address [address] [place] [address]- Care Team Providers Care Tape Controlled Machine Stitcher Name Role Phone Angelica Cantu MD, Roberta Vang Primary Care Physici an Encounter [facility] [place] Date(s): 10/06/22 - 11/05/22 [facility] [address] [place] [address] Attending Physician: Stew Campbell Admitting Physician: Admtr, Stew Referring Physician: Admtr, Ar8 Allergies, Adverse Reactions, Alerts No Known Allergies [...] 30 capsule,3 Refills, Maintenance, 10/06/22 18:00:00 EST, [facility] #[id number], Partial fill upon patient request if the [...] 2005 Active H/O thrombocytopenia in 8 Confirmed 2018 Active COVID-19 vaccine series completed Confirmed Active H/O Preeclampsia 9 Confirmed 2005 Active H/O Gestational hypertension Confirmed Active Current smoker Confirmed Active 1Per [facility] TECHNICAL SALES SUPPORT SPECIALIST chart scanned in CIS with date of 05/09/2018 2Pt reports in not engaged with mental health services currently but is mananging ok at present. Pt informed of N services - pt reports will notify office if she feels N services are needed. 3Pt reports she was informed by [place] TECHNICAL SALES SUPPORT SPECIALIST she has a short cervix. 4Per [facility] TECHNICAL SALES SUPPORT SPECIALIST chart scanned in CIS with date of 05/09/2018 5PTD@ 29w GA of twins 6Pt reports use of progesterone RX IM with . 8Per [facility] TECHNICAL SALES SUPPORT SPECIALIST chart scanned in CIS with date of 05/09/2018 9Per [facility] TECHNICAL SALES SUPPORT SPECIALIST chart scanned in CIS with date of 05/09/2018 Social History Social History Type Response Smoking Status Never (less than 100 in lifetime) entered on: 02/18/21 Sex Patient Care team information Care Team Personnel Name: Roberta Parker MD Position: [facility] Outreach Member Role: PCP Address: Address: [address] [place] [address] [address] [place] [address]- Name: Damien Baires MD Position: [facility] Renal MD Member Role: Lifetime Consulting Physician Address: Address: [address] [facility], [address] [facility] [place] [address]- Name: Musa Blue RN Position: [facility] OB RN Member Role: Primary Care Nurse Name: Juan Antonio Powell RN Position: S RN Member Role: Primary Care Nurse Name: Lilly DOZIER, Eduardo Position: [facility] Renal MD Member Role: Lifetime Consulting Physician Address: Address: [address] [place] [address] [address] [facility] [place], [place] [address]- Care Team Related Persons Name: CLEMENT DARLING Address: [address] Address: [address] [place] [address] [place] Address: temporary 0 Name: TASHA DARLING Address: [address] Address: [address] [place] [address] [place] Address: temporary 0 Name: PUNEET VELASCO Address: [address] [place] [address]
--- OUTSIDE RECORDS SUMMARY | 2024-07-23 21:41 | XMS_ITS | Continuity of Care Document ---
Author Organization [facility] Address [address] [place] [address]- Care Team Providers Care Aircraft Ordnance Technician Name Role Phone Angelica Cantu MD, Roberta Vang Primary Care Physici an [place] [facility] [place] 10/21/22 [facility] [address] [place], [place] [address] Allergies, Adverse Reactions, Alerts No Known Allergies [...] capsule,3 Refills, Maintenance, 10/06/22 18:00:00 EST, [facility]/pharmacy #[id number], Partial fill upon patient request if the prescription is for a schedule II opioid . Start Date: 10/06/22 Status: Ordered Problem List Condition Confirmation Course Effective Dates Status H ealth Status Informant H/O Abnormal Pap smear of cervix 1 Confirmed Active Environmental and seasonal allergies Confirmed Active H/O Anxiety 2 Confirmed Active H/O Chlamydia Confirmed 2017 Active Short cervix 3 Confirmed Active Genital [...] Confirmed Active Current smoker Confirmed Active 1Per [facility] SPANISH TEACHER chart scanned in CIS with date of 05/09/2018 2Pt reports in not engaged with mental health services currently but is mananging ok at present. Pt informed of N services - pt reports will notify office if she feels BHN services are needed. 3Pt reports she was informed by [place] SPANISH TEACHER she has a short cervix. 4Per [facility] SPANISH TEACHER chart scanned in CIS with date of 05/09/2018 5PTD@ 29w GA of twins 6Pt reports use of progesterone RX IM with . 8Per [facility] SPANISH TEACHER chart scanned in CIS with date of 05/09/2018 9Per [facility] SPANISH TEACHER chart scanned in CIS with date of 05/09/2018 Social History Social History Type Response Smoking Status Never (less than 100 in lifetime) entered on: 02/18/21 Sex Patient Care team information Care Team Personnel Name: Roberta Parker MD Position: [facility] Outreach Member Role: PCP Address: Address: [address] [facility] [address] [place] [address]- Name: Damien Baires MD Position: [facility] Renal MD Member Role: Lifetime Consulting Physician Address: Address: [address] [place] [address], [address] [facility] [place] [address]- [place] Name: Musa Blue RN Position: [facility] OB RN Member Role: Primary Care Nurse Name: Juan Antonio Powell RN Position: S RN Member Role: Primary Care Nurse Name: Eduardo Carr MD Position: [facility] Renal MD Member Role: Lifetime Consulting Physician Address: Address: [address] [facility] [address] [facility] [place], [place] [address]- Care Team Related Persons Name: SANTA DARLINGEQUIEL Address: [address] Address: [address] [place] [address] [place] Address: temporary 0 Name: TASHA DARLING Address: [address] Address: [address] [place] [address] [place] Address: temporary 0 Name: PUNEET VELASCO Address: [address] [place] [address]
--- OUTSIDE RECORDS SUMMARY | 2024-07-23 21:41 | XMS_ITS | Continuity of Care Document ---
Author Organization [facility] Address [address] [place] [address]- Care Team Providers Care Dietary Cook Name Role Phone Angelica Cantu MD, Roberta Vang Primary Care Physici an [place] [facility] [place] - 09/14/22 [facility] [address] [address]- Allergies, Adverse Reactions, Alerts No Known Allergies Medications aspirin 81 mg oral delayed release tablet See Instructions, 2 tablet By Mouth at night Please begin to take at 12 weeks of ., # 60 tablet, 0 Refills, Maintenance, 08/02/22 10:27:00 EDT, CR Tablet, [id number], Partial fill upon patient request if the prescription is for a gunjan... Start Date: 08/02/22 Status: Ordered cetirizine 10 mg oral tablet 1 tablet [...] 2005 Active H/O Gestational hypertension Confirmed Active 1Per [facility] FISCAL CLERK chart scanned in CIS with date of 05/09/2018 2Pt reports in not engaged with mental health services currently but is mananging ok at present. Pt informed of BHN services - pt reports will notify office if she feels BHN services are needed. 3Pt reports she was informed by [place] FISCAL CLERK she has a short cervix. 4Per [facility] FISCAL CLERK chart scanned in CIS with date of 05/09/2018 5PTD@ 29w GA of twins 6Pt reports use of progesterone RX IM with . 8Per [facility] FISCAL CLERK chart scanned in CIS with date of 05/09/2018 9Per [facility] FISCAL CLERK chart scanned in CIS with date of 05/09/2018 Social History Social History Type Response Smoking Status Never (less than 100 in lifetime) entered on: 02/18/21 Sex Patient Care team information Care Team Personnel Name: Roberta Parker MD Position: [facility] Outreach Member Role: PCP Address: Address: [address] [place] [address] [address] [place] [address]- Name: Damien Baires MD Position: [facility] Renal MD Member Role: Lifetime Consulting Physician Address: Address: [address] [place] [address], [address] [facility] [place] [address]- Name: Musa Blue RN Position: [facility] OB RN Member Role: Primary Care Nurse Name: Juan Antonio Powell RN Position: S RN Member Role: Primary Care Nurse Name: Eduardo Carr MD Position: [facility] Renal MD Member Role: Lifetime Consulting Physician Address: Address: [address] [place] [address] [address] [facility] [place] [address]- Care Team Related Persons Name: CLEMENT DARLING Address: [address] Address: [address] [place] [address] [place] Address: temporary 0 Name: TASHA DARLING Address: [address] Address: [address] [place] [address] [place] Address: temporary 0 Name: PUNEET VELASCO Address: [address] [place] [address]
--- OUTSIDE RECORDS SUMMARY | 2024-07-23 21:41 | XMS_ITS | Continuity of Care Document ---
Author Organization [facility] Address [address] [place] [address]- Care Team Providers Care Cattle Care Worker Name Role Phone Angelica Cantu MD, Roberta Vang Primary Care Physici an [place] [facility] [place] - 09/01/[place] [facility] [address] [address] Allergies, Adverse Reactions, Alerts No Known [...] 3 Confirmed Active Genital HSV 4 Confirmed 2017 Active H/O delivery 5 Confirmed 2017 Active H/O Varicella as a child Confirmed Active H/O PTD 6, 7 Confirmed 2007 Active H/O (GDM) Confirmed 2006 Active H/O thrombocytopenia in 8 Confirmed 2018 Active COVID-19 vaccine series completed Confirmed Active H/O Preeclampsia 9 Confirmed 2006 Active H/O Gestational hypertension Confirmed Active 1Per [facility] HAT SPRAYER chart scanned in CIS with date of 05/09/2018 2Pt reports in not engaged with mental health services currently but is mananging ok at present. Pt informed of BHN services - pt reports will notify office if she feels BHN services are needed. 3Pt reports she was informed by [place] HAT SPRAYER she has a short cervix. 4Per [facility] HAT SPRAYER chart scanned in CIS with date of 05/09/2018 5PTD@ 29w GA of twins 6Pt reports use of progesterone RX IM with . 8Per [facility] HAT SPRAYER chart scanned in CIS with date of 05/09/2018 9Per [facility] HAT SPRAYER chart scanned in CIS with date of 05/09/2018 Social History Social History Type Response Smoking Status Never (less than 100 in lifetime) entered on: 02/18/21 Sex Patient Care team information Care Team Personnel Name: Roberta Parker MD Position: [facility] Outreach Member Role: PCP Address: Address: [address] [place] [address] [address] [place] [address]- Name: Damien Baires MD Position: [facility] Renal MD Member Role: Lifetime Consulting Physician Address: Address: [address] [place] [address], [address] [facility] [place] [address]- Name: Musa Blue RN Position: [facility] OB RN Member Role: Primary Care Nurse Name: Juan Antonio Powell RN Position: S RN Member Role: Primary Care Nurse Name: Eduardo Carr MD Position: [facility] Renal MD Member Role: Lifetime Consulting Physician Address: Address: [address] [place] [address] [address] [facility] [place] [address]- Care Team Related Persons Name: PHONGCLEMENT Address: Address: [address] [place] [address] [place] Address: temporary 0 Name: PHONG TASHA Address: Address: [address] [place] [address] [place] Address: temporary 0 Name: PUNEET VELASCO Address: [address] [address]
--- OUTSIDE RECORDS SUMMARY | 2024-07-23 21:41 | XMS_ITS | Continuity of Care Document ---
Author Organization [employer] Address [address] [place] [address]- Care Team Providers Care Blister Packaging Machine Operator Name Role Phone Angelica Cantu MD, Roberta Vang Primary Care Physici an Encounter [facility] ACCT R [id number] Date(s): 10/21/22 - 02/12/23 [facility] [address] [address]- Attending Physician: Darlene Carl CNM Admitting Physician: Darlene Carl CNM Allergies, Adverse Reactions, Alerts No Known Allergies Medications aspirin 81 mg oral delayed release tablet See Instructions, 2 tablet By Mouth at night Please begin to take at 12 weeks of ., # 60 tablet, 0 Refills, Maintenance, 08/02/22 10:27:00 EDT, CR Tablet, [id number], Partial fill upon patient request if the [...] hypertension Confirmed Active [facility] METAL FINISH INSPECTOR chart scanned in CIS with date of 05/09/2018 2Pt reports in not engaged with mental health services currently but is mananging ok at present. Pt informed of N services - pt reports will notify office if she feels BHN services are needed. 3Per [facility] METAL FINISH INSPECTOR chart scanned in CIS with date of 05/09/2018 4PTD@ 29w GA of twins 5Pt reports use of progesterone RX IM with . 7Per [facility] METAL FINISH INSPECTOR chart scanned in CIS with date of 05/09/2018 8Per [facility] METAL FINISH INSPECTOR chart scanned in CIS with date of 05/09/2018 Social History Social History Type Response Smoking Status Never (less than 100 in lifetime) entered on: 02/18/21 Sex Patient Care team information Care Team Personnel Name: Roberta Parker MD Position: S Outreach Member Role: PCP Address: Address: [address] [place] [address] [address] [place] [address]- Name: Damien Baires MD Position: [facility] Renal MD Member Role: Lifetime Consulting Physician Address: Address: [address] [place] [address], [address] [facility] [place] [address]- Name: Musa Blue RN Position: [facility] OB RN Member Role: Primary Care Nurse Name: Juan Antonio Powell RN Position: S RN Member Role: Primary Care Nurse Name: Neo Cox RN Position: [facility] SN RN Member Role: Primary Care Nurse Name: Eduardo Carr MD Position: [facility] Renal MD Member Role: Lifetime Consulting Physician Address: Address: [address] [place] [address] [address] [facility] [place], [place] [address]- Care Team Related Persons Name: CLEMENT DARLING Address: [address] Address: [address] [place] [address] [place] Address: temporary 0 Name: TASHA DARLING Address: [address] Address: [address] [place] [address] [place] Address: temporary 0 Name: NO, ONE Name: PUNEET VELASCO Address: [address] [place] [address]
--- OUTSIDE RECORDS SUMMARY | 2024-07-23 21:41 | XMS_ITS | Continuity of Care Document ---
Author Organization [facility] Address [address] [place] [address]- Care Team Providers Care Legal Aide Name Role Phone Angelica Cantu MD, Roberta Vang Primary Care Physici [id number] Date[facility]s): 09/21/22 - 10/27/22 [facility] [address] [address]- Attending Physician: Alex Mackenzie MD Admitting Physician: Alex Mackenzie MD Referring Physician: Marlon GARCIA CNM, Alisa Dominguez Allergies, Adverse Reactions, Alerts No Known Allergies [...] 30 capsule,3 Refills, Maintenance, 10/06/22 18:00:00 EST, [facility]/pharmacy #[id number], Partial fill upon patient request if the [...] 2006 Active H/O Gestational hypertension Confirmed Active Current smoker Confirmed Active 1Per [facility] EDISCOVERY PROJECT MANAGER chart scanned in CIS with date of 05/09/2018 2Pt reports in not engaged with mental health services currently but is mananging ok at present. Pt informed of N services - pt reports will notify office if she feels N services are needed. 3Pt reports she was informed by [place] EDISCOVERY PROJECT MANAGER she has a short cervix. 4Per [facility] EDISCOVERY PROJECT MANAGER chart scanned in CIS with date of 05/09/2018 5PTD@ 29w GA of twins 6Pt reports use of progesterone RX IM with . 8Per [facility] EDISCOVERY PROJECT MANAGER chart scanned in CIS with date of 05/09/2018 9Per [facility] EDISCOVERY PROJECT MANAGER chart scanned in CIS with date of 05/09/2018 Social History Social History Type Response Smoking Status Never (less than 100 in lifetime) entered on: 02/18/21 Sex Patient Care team information Care Team Personnel Name: Roberta Parker MD Position: [facility] Outreach Member Role: PCP Address: Address: [address] [place] [address] [place] [address]- Name: Dequan DOZIER, Damien Jj Position: [facility] Renal MD Member Role: Lifetime Consulting Physician Address: Address: [address] [place] [address], [address] [facility] [place] [address]- Name: Musa Blue RN Position: [facility] OB RN Member Role: Primary Care Nurse Name: Juan Antonio Powell RN Position: S RN Member Role: Primary Care Nurse Name: Eduardo Carr MD Position: [facility] Renal MD Member Role: Lifetime Consulting Physician Address: Address: [address] [place] [address] [address] [facility] [place] [address]- Care Team Related Persons Name: CLEMENT DARLING Address: [address] Address: [address] [place] [address] [place] Address: temporary 0 Name: TASHA DARLING Address: [address] Address: [address] [place] [address] [place] Address: temporary 0 Name: PUNEET VELASCO Address: [address] [place] [address]
--- OUTSIDE RECORDS SUMMARY | 2024-07-23 21:41 | XMS_ITS | Continuity of Care Document ---
Author Organization [facility] Address [address] [place] [address]- Care Team Providers Care Can Cutter Name Role Phone Angelica Cantu MD, Roberta Vang Primary Care Physici an Encounter [facility] Date(s): 08/10/22 - 09/09/22 [facility] [address] [place], [place] [address] Allergies, Adverse Reactions, Alerts No Known Allergies [...] Active H/O Gestational hypertension Confirmed Active 1Per [facility] SCHOOL OF NURSING DIRECTOR chart scanned in CIS with date of 05/09/2018 2Pt reports in not engaged with mental health services currently but is mananging ok at present. Pt informed of BHN services - pt reports will notify office if she feels BHN services are needed. 3Pt reports she was informed by [place] SCHOOL OF NURSING DIRECTOR she has a short cervix. 4Per [facility] SCHOOL OF NURSING DIRECTOR chart scanned in CIS with date of 05/09/2018 5PTD@ 29w GA of twins 6Pt reports use of progesterone RX IM with . 8Per [facility] SCHOOL OF NURSING DIRECTOR chart scanned in CIS with date of 05/09/2018 9Per [facility] SCHOOL OF NURSING DIRECTOR chart scanned in CIS with date of 05/09/2018 Social History Social History Type Response Smoking Status Never (less than 100 in lifetime) entered on: 02/18/21 Sex Patient Care team information Care Team Personnel Name: Roberta Parker MD Position: [facility] Outreach Member Role: PCP Address: Address: [address] [place] [address]- Name: Dequan DOZIER, Damien Jj Position: [facility] Renal MD Member Role: Lifetime Consulting Physician Address: Address: [address] [place] [address], [address] [facility] [place] [address]- Name: Musa Blue RN Position: [facility] OB RN Member Role: Primary Care Nurse Name: Juan Antonio Powell RN Position: S RN Member Role: Primary Care Nurse Name: Eduardo Carr MD Position: [facility] Renal MD Member Role: Lifetime Consulting Physician Address: Address: [address] [place] [address] [address] [facility] [place] [address]- Care Team Related Persons Name: CLEMENT DARLING Address: Address: [address] [place], [place] Address: temporary 0 Name: TASHA DARLING Address: [address] Address: [address] [place], [place] Address: temporary 0 Name: PUNEET VELASCO Address: [address] [place], [place]
--- OUTSIDE RECORDS SUMMARY | 2024-07-23 21:42 | XMS_ITS | Continuity of Care Document ---
Author Organization [facility] Address [address] [place] [address]- Care Team Providers Care Bear Keeper Name Role Phone Angelica Cantu MD, Roberta Vang Primary Care Physici an [id number] Date(s): 08/02/22 - 09/29/22 [facility] [address] [address]- Attending Physician: Darlene Carl CNM Admitting Physician: Darlene Carl CNM Referring Physician: Marlon GARCIA, Alisa Dominguez Allergies, Adverse Reactions, Alerts No [...] 09/15/22 14:04:0... 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 Pt informed of N services - pt reports will notify office if she feels BHN services are needed. 3Pt reports she was informed by [facility] WORKFORCE ANALYST she has a short cervix. 4Per [facility] WORKFORCE ANALYST chart scanned in CIS with date of 05/09/2018 5PTD@ 29w GA of twins 6Pt reports use of progesterone RX IM with . 8Per [facility] WORKFORCE ANALYST chart scanned in CIS with date of 05/09/2018 9Per [facility] WORKFORCE ANALYST chart scanned in CIS with date of 05/09/2018 Social History Social History Type Response Smoking Status Never (less than 100 in lifetime) entered on: 02/18/21 Sex Patient Care team information Care Team Personnel Name: Roberta Parker MD Position: [facility] Outreach Member Role: PCP Address: Address: [address] [facility] [address] [place] [address]- Name: Damien Baires MD Position: [facility] Renal MD Member Role: Lifetime Consulting Physician Address: Address: [address] [place] [address], [address] [facility] [place] [address]- [place] Name: Musa Blue RN Position: [facility] OB RN Member Role: Primary Care Nurse Name: Juan Antonio Powell RN Position: [facility] RN Member Role: Primary Care Nurse Name: Eduardo Carr MD Position: [facility] Renal MD Member Role: Lifetime Consulting Physician Address: Address: [address] [facility] [address] [facility] [address]- Care Team Related Persons Name: CLEMENT DARLING Address: [address] Address: [address] [place] [address] [place] Address: temporary 0 Name: TASHA DARLING Address: [address] Address: [address] [place] [address] [place] Address: temporary 0 Name: PUNEET VELASCO Address: [address] [place] [address]
--- OUTSIDE RECORDS SUMMARY | 2024-07-23 21:42 | XMS_ITS | Continuity of Care Document ---
Author Organization [facility] Address [address] [place] [address]- Care Team Providers Care Coffee Bar Attendant Name Role Phone Angelica Cantu MD, Roberta Vang Primary Care Physici an Encounter [facility] Date(s): 11/28/22 - 12/28/[address] [address]- Allergies, Adverse Reactions, Alerts No Known Allergies [...] capsule,3 Refills, Maintenance, 10/06/22 18:00:00 EST, [id number], Partial fill upon patient request if the prescription is for a schedule II opioid Start Date: 10/06/22 Status: Ordered Problem List Condition Confirmation Course Effective Dates Status H ealth Status Informant H/O Abnormal Pap smear of cervix 1 Confirmed Active Environmental and seasonal allergies Confirmed Active H/O Anxiety 2 Confirmed Active H/O Chlamydia Confirmed 2017 Active Genital HSV 3 Confirmed 2017 Active H/O delivery 4 Confirmed 2017 Active H/O Varicella as a child Confirmed Active H/O PTD 5, 6 Confirmed 2007 Active H/O (GDM) Confirmed 2005 Active H/O thrombocytopenia in 7 Confirmed 2017 Active COVID-19 vaccine series completed Confirmed Active H/O Preeclampsia 8 Confirmed 2005 Active H/O Gestational hypertension Confirmed Active [facility] ADJUNCT PSYCHOLOGY PROFESSOR chart scanned in CIS with date of 05/09/2018 2Pt reports in not engaged with mental health services currently but is mananging ok at present. Pt informed of BHN services - pt reports will notify office if she feels BHN services are needed. 3Per [facility] ADJUNCT PSYCHOLOGY PROFESSOR chart scanned in CIS with date of 05/09/2018 4PTD@ 29w GA of twins 5Pt reports use of progesterone RX IM with . 7Per [facility] ADJUNCT PSYCHOLOGY PROFESSOR chart scanned in CIS with date of 05/09/2018 8Per [facility] ADJUNCT PSYCHOLOGY PROFESSOR chart scanned in CIS with date of 05/09/2018 Social History Social History Type Response Smoking Status Never (less than 100 in lifetime) entered on: 02/18/21 Sex Patient Care team information Care Team Personnel Name: Roberta Parker MD Position: [facility] Outreach Member Role: PCP Address: Address: [address] [place] [address] [address] [place] [address]- Name: Damien Baires MD Position: [facility] Renal MD Member Role: Lifetime Consulting Physician Address: Address: [address] [place] [address], [address] [facility] [place] [address]- Name: Musa Blue RN Position: [facility] OB RN Member Role: Primary Care Nurse Name: Juan Antonio Powell RN Position: S RN Member Role: Primary Care Nurse Name: Eduardo Carr MD Position: [facility] Renal MD Member Role: Lifetime Consulting Physician Address: Address: [address] [place] [address] [address] [facility] [place], [place] [address]- Care Team Related Persons Name: CLEMENT DARLING Address: [address] Address: [address] [place] [address] [place] Address: temporary 0 Name: TASHA DARLING Address: [address] Address: [address] [place] [id number] [place] Address: temporary 0 Name: NO, ONE Name: PUNEET VELASCO Address: [address] [place] [address]
--- OUTSIDE RECORDS SUMMARY | 2024-07-23 21:42 | XMS_ITS | Continuity of Care Document ---
Author Organization [facility] Address [address] [place] [address]- Care Team Providers Care Hospital Educator Name Role Phone Angelica Cantu MD, Roberta Vang Primary Care Physici an [facility] Date(s): 12/06/22 - 01/05/[address] [address]- Allergies, Adverse Reactions, Alerts No Known Allergies [...] for aschedule II opioid drug., 160, cm, 12/15/22 14:04:0... Start Date: 09/15/22 Status: Ordered Prometrium 200 mg oral capsule See Instructions, Place one capsule vaginally every night from 16-36 weeks gestation, # 30 capsule,3 Refills, Maintenance, 10/06/22 18:00:00 EST, [id number], Partial fill upon patient request if the [...] 2005 Active H/O thrombocytopenia in 7 Confirmed 2018 Active COVID-19 vaccine series completed Confirmed Active H/O Preeclampsia 8 Confirmed 2005 Active H/O Gestational hypertension Confirmed Active [facility] CLINICAL INFORMATICS SPECIALIST chart scanned in CIS with date of 05/09/2018 2Pt reports in not engaged with mental health services currently but is mananging ok at present. Pt informed of N services - pt reports will notify office if she feels BHN services are needed. 3Per [facility] CLINICAL INFORMATICS SPECIALIST chart scanned in CIS with date of 05/09/2018 4PTD@ 29w GA of twins 5Pt reports use of progesterone RX IM with . 7Per [facility] CLINICAL INFORMATICS SPECIALIST chart scanned in CIS with date of 05/09/2018 8Per [facility] CLINICAL INFORMATICS SPECIALIST chart scanned in CIS with date of 05/09/2018 Social History Social History Type Response Smoking Status Never (less than 100 in lifetime) entered on: 02/18/21 Sex Patient Care team information Care Team Personnel Name: Roberta Parker MD Position: [facility] Outreach Member Role: PCP Address: Address: [address] [place] [address] [address] [place] [address]- Name: Damien Baires MD Position: [facility] Renal MD Member Role: Lifetime Consulting Physician Address: Address: [address] [place] [address], [address] [facility] [place] [address]- Name: Musa Blue RN Position: [facility] OB RN Member Role: Primary Care Nurse Name: Juan Antonio Powell RN Position: S RN Member Role: Primary Care Nurse Name: Eduardo Carr MD Position: [facility] Renal MD Member Role: Lifetime Consulting Physician Address: Address: [address] [place] [address] [address] [facility] [place], [place] [address]- Care Team Related Persons Name: CLEMENT DARLING Address: [address] Address: [address] [place] [address] [place] Address: temporary 0 Name: TASHA DARLING Address: [address] Address: [address] [place] [address] [place] Address: temporary 0 Name: NO, ONE Name: PUNEET VELASCO Address: [address] [place] [address]
--- OUTSIDE RECORDS SUMMARY | 2024-07-23 21:42 | XMS_ITS | Continuity of Care Document ---
Author Organization [facility] Address [address] [place] [address]- Care Team Providers Care Recovery Agent Name Role Phone Angelica Cantu MD, Roberta Vang Primary Care Physici an Encounter [facility] Date(s): 09/21/22 - 11/10/22 [facility] [address] [place] [address] Attending Physician: Jones Delgado MD Admitting Physician: Sandy DOZIER, Jones Referring Physician: Ruiz Garcia MD Allergies, Adverse Reactions, Alerts No Known [...] 30 capsule,3 Refills, Maintenance, 10/06/22 18:00:00 EST, [facility]/pharmacy #[id number], Partial fill upon patient request if the [...] Confirmed Active Current smoker Confirmed Active 1Per [facility] TIRE TRIMMER HAND chart scanned in CIS with date of 05/09/2018 2Pt reports in not engaged with mental health services currently but is mananging ok at present. Pt informed of N services - pt reports will notify office if she feels N services are needed. 3Pt reports she was informed by [place] TIRE TRIMMER HAND she has a short cervix. 4Per [facility] TIRE TRIMMER HAND chart scanned in CIS with date of 05/09/2018 5PTD@ 29w GA of twins 6Pt reports use of progesterone RX IM with . 8Per [facility] TIRE TRIMMER HAND chart scanned in CIS with date of 05/09/2018 9Per [facility] TIRE TRIMMER HAND chart scanned in CIS with date of 05/09/2018 Social History Social History Type Response Smoking Status Never (less than 100 in lifetime) entered on: 02/18/21 Sex Patient Care team information Care Team Personnel Name: Roberta Parker MD Position: [facility] Outreach Member Role: PCP Address: Address: [address] [place] [address] [address] [place] [address]- Name: Damien Baires MD Position: [facility] Renal MD Member Role: Lifetime Consulting Physician Address: Address: [address] [facility], [address] [facility] [place] [address]- Name: Musa Blue RN Position: [facility] OB RN Member Role: Primary Care Nurse Name: Juan Antonio Powell RN Position: S RN Member Role: Primary Care Nurse Name: Lilly DOZIER, Eduardo Position: [facility] Renal MD Member Role: Lifetime Consulting Physician Address: Address: [address] [facility] [address] [facility] [place], [place] [address]- Care Team Related Persons Name: CLEMENT DARLING Address: [address] Address: [address] [place] [address] [place] Address: temporary 0 Name: TASHA DARLING Address: [address] Address: [address] [place] [address] [place] Address: temporary 0 Name: PUNEET VELASCO Address: [address] [place] [address]
--- OUTSIDE RECORDS SUMMARY | 2024-07-23 21:42 | XMS_ITS | Continuity of Care Document ---
Author Organization [facility] Address [address] [place] [address]- Care Team Providers Care Gm Name Role Phone Angelica Cantu MD, Roberta Vang Primary Care Physici an Encounter [facility] Date(s): 09/17/22 - 01/15/[address] [address] Attending Physician: Not on Staff, Attending MD [...] 30 capsule,3 Refills, Maintenance, 10/06/22 18:00:00 EST, [facility]/pharmacy #[id number], Partial fill upon patient request if the prescription is for a schedule II opioid Start Date: 10/06/22 Status: Ordered Problem List Condition Confirmation Course Effective Dates Status H ealth Status Informant H/O Abnormal Pap smear of cervix 1 Confirmed Active Environmental and seasonal allergies Confirmed Active H/O Anxiety 2 Confirmed Active H/O Chlamydia Confirmed 2017 Active Genital HSV 3 Confirmed 2018 Active H/O delivery 4 Confirmed 2018 Active H/O Varicella as a child Confirmed Active H/O PTD 5, 6 Confirmed 2007 Active H/O (GDM) Confirmed 2005 Active H/O thrombocytopenia in 7 Confirmed 2017 Active COVID-19 vaccine series completed Confirmed Active H/O Preeclampsia 8 Confirmed 2005 Active H/O Gestational hypertension Confirmed Active [facility] REWORK MACHINE OPERATOR chart scanned in CIS with date of 05/09/2018 2Pt reports in not engaged with mental health services currently but is mananging ok at present. Pt informed of N services - pt reports will notify office if she feels N services are needed. 3Per [facility] REWORK MACHINE OPERATOR chart scanned in CIS with date of 05/09/2018 4PTD@ 29w GA of twins 5Pt reports use of progesterone RX IM with . [id number]/2018 7Per [facility] REWORK MACHINE OPERATOR chart scanned in CIS with date of 05/09/2018 8Per [facility] REWORK MACHINE OPERATOR chart scanned in CIS with date of 05/09/2018 Social History Social History Type Response Smoking Status Never (less than 100 in lifetime) entered on: 02/18/21 Sex Patient Care team information Care Team Personnel Name: Roberta Parker MD Position: [facility] Outreach Member Role: PCP Address: Address: [address] [place] [address] [address] [place] [address]- Name: Damien Baires MD Position: [facility] Renal MD Member Role: Lifetime Consulting Physician Address: Address: [address] [facility], [address] [facility] [place] [address]- Name: Musa Blue RN Position: [facility] OB RN Member Role: Primary Care Nurse Name: Juan Antonio Powell RN Position: S RN Member Role: Primary Care Nurse Name: Eduardo Carr MD Position: [facility] Renal MD Member Role: Lifetime Consulting Physician Address: Address: [address] [place] [address] [address] [facility] [place], [place] [address]- Care Team Related Persons Name: CLEMENT DARLING Address: [address] Address: [address] [place] [address] [place] Address: temporary 0 Name: TASHA DARLING Address: [address] Address: [address] [place] [address] [place] Address: temporary 0 Name: NO, ONE Name: PUNEET VELASCO Address: [address] [place] [address]
--- OUTSIDE RECORDS SUMMARY | 2024-07-23 21:42 | XMS_ITS | Patient Health Record ---
Author Organization [facility] Address [address], [place] [id number] Care Team Providers Care Hydrologic Engineer Name Role Phone [facility] Primary Care Provider Mary Anne vailable REASON FOR REFERRAL No Information SOCIAL HISTORY Sex Assigned At : Social History Observation Description Sex Assigned At Unknown PROBLEMS Problem Type ICD Code Onset Dates Problem Status W/U Status Risk SNOMED Code Notes Problem Tobacco use disorder (305.1) Active confirmed Tobacco use ([id number]) PLAN OF TREATMENT No Information Insurance Providers Payer Name Payer Address Payer Phone Subscriber Number Group Number Insured Name Patient Relationship to Insured Coverage Start Date Coverage End Date [place] Standard [address] [place] [phone] [id number] Shasha Yen Self - patient is the insured MEDICAL (GENERAL) HISTORY Medical History History ICD Code None
--- OUTSIDE RECORDS SUMMARY | 2024-07-23 21:42 | XMS_ITS | Continuity of Care Document ---
Author Organization [facility] Address [address] [place] [address]- Care Team Providers Care Dry Mill Operator Name Role Phone Angelica Cantu MD, Roberta Vang Primary Care Physici an Encounter [facility] [place] Date(s): 11/24/22 - 12/24/[address] [address]- Allergies, Adverse Reactions, Alerts No Known Allergies [...] capsule,3 Refills, Maintenance, 10/06/22 18:00:00 EST, [id number], Partial fill upon patient request if the [...] hypertension Confirmed Active [facility] in [facility] with date of 05/09/2018 2Pt reports in not engaged with mental health services currently but is mananging ok at present. Pt informed of BHN services - pt reports will notify office if she feels BHN services are needed. 3Per [facility] COMMERCIAL DESIGNER chart scanned in CIS with date of 05/09/2018 4PTD@ 29w GA of twins 5Pt reports use of progesterone RX IM with . 7Per [facility] COMMERCIAL DESIGNER chart scanned in CIS with date of 05/09/2018 8Per [facility] COMMERCIAL DESIGNER chart scanned in CIS with date of 05/09/2018 Social History Social History Type Response Smoking Status Never (less than 100 in lifetime) entered on: 02/18/21 Sex Patient Care team information Care Team Personnel Name: Roberta Parker MD Position: [facility] Outreach Member Role: PCP Address: Address: [address] [place] [address] [address] [place] [address]- Name: Damien Baires MD Position: [facility] Renal MD Member Role: Lifetime Consulting Physician Address: Address: [address] [place] [address], [address] [facility] [place] [address]- Name: Musa Blue RN Position: [facility] OB RN Member Role: Primary Care Nurse Name: Juan Antonio [place] RN Position: S RN Member Role: Primary Care Nurse Name: Eduardo Carr MD Position: [facility] Renal MD Member Role: Lifetime Consulting Physician Address: Address: [address] [place] [address] [address] [facility] [place], [place] [address]- Care Team Related Persons Name: CLEMENT DARLING Address: [id number] Address: home [address] [place] [address] [place] Address: temporary 0 Name: TASHA DARLING Address: [address] Address: home [address] [place] [id number] [place] Address: temporary 0 Name: NO, ONE Name: PUNEET VELASCO Address: home [address] [place] [address]
--- OUTSIDE RECORDS SUMMARY | 2024-07-23 21:42 | XMS_ITS | Continuity of Care Document ---
Author Organization [facility] Address [address] [place] [address] Care Team Providers Care Barrel Racer Name Role Phone Angelica Cantu MD, Roberta Vang Primary Care Physici an Encounter [facility] [id number] Date(s): 10/21/22 - 01/29/23 [facility] [address] [address]- Attending Physician: Darlene Carl CNM Admitting Physician: Darlene Carl CNM Allergies, Adverse Reactions, Alerts No Known Allergies Medications aspirin 81 mg oral delayed release tablet See Instructions, 2 tablet By Mouth at night Please begin to take at 12 weeks of ., # 60 tablet, 0 Refills, Maintenance, 08/02/22 10:27:00 EDT, CR Tablet, [id number], Partial fill upon patient request if the [...] Active Current [facility] EQUIPMENT CLEANER AND TESTER chart scanned in CIS with date of 05/09/2018 2Pt reports in not engaged with mental health services currently but is mananging ok at present. Pt informed of N services - pt reports will notify office if she feels BHN services are needed. 3Per [facility] EQUIPMENT CLEANER AND TESTER chart scanned in CIS with date of 05/09/2018 4PTD@ 29w GA of twins 5Pt reports use of progesterone RX IM with . 7Per [facility] EQUIPMENT CLEANER AND TESTER chart scanned in CIS with date of 05/09/2018 8Per [facility] EQUIPMENT CLEANER AND TESTER chart scanned in CIS with date of 05/09/2018 Social History Social History Type Response Smoking Status Never (less than 100 in lifetime) entered on: 02/18/21 Sex Patient Care team information Care Team Personnel Name: Roberta Parker MD Position: S Outreach Member Role: PCP Address: Address: [address] [place] [address] [place] [address]- Name: Damien Baires MD Position: [facility] Renal MD Member Role: Lifetime Consulting Physician Address: Address: [address] [place] [address], [address] [facility] [place] [address]- Name: Musa Blue RN Position: [facility] OB RN Member Role: Primary Care Nurse Name: Juan Antonio [place] RN Position: S RN Member Role: Primary Care Nurse Name: Neo Cox RN Position: [facility] SN RN Member Role: Primary Care Nurse Name: Eduardo Carr MD Position: [facility] Renal MD Member Role: Lifetime Consulting Physician Address: Address: [address] [place] [address] [address] [facility] [place], [place] [address]- Care Team Related Persons Name: CLEMENT DARLING Address: [address] Address: [address] [place] [address] [place] Address: temporary 0 Name: TASHA DARLING Address: [address] Address: [address] [place] [address] [place] Address: temporary 0 Name: NO, ONE Name: PUNEET VELASCO Address: [address] [place] [address]
[2024-07-23 21:45] LABS: White Blood Count 10.1 X10*3/uL (4.8-10.8)
[2024-07-23 21:47] LABS: SLIDE REVIEW VERIFIED
--- NOTE | 2024-07-23 21:51 | PC.NURSE ---
pt from home, a&ox4, respirations even and unlabored. pt reports taking test approx. 6 weeks ago which resulted positive, pt reports for the last 3-4 days she has been experiencing scant amounts of pink tinged discharge, reports today while at [place] she developed sudden onset of lower abdominal cramping radiating into lower back, with a large amount of blood. pt reports since then she has filled two large pads, denies blood clots. pt is .
--- NOTE | 2024-07-23 22:42 | PC.NURSE ---
pt discharged by provider, pt left ED room without nursing discharge papers.
[2024-07-23 22:50] VITALS: BP 147/86; PULSE 82; RESP 18; TEMP 37; O2SAT 99
== END 2024-07-23 22:51 | disposition home or self-care (01) ==
PROVIDERS: Physician Assistant Medical; Emergency Provider Emergency Medicine Emergency Medical Services; PCP Internal Medicine
DX: N93.8 Other specified abnormal uterine and vaginal bleeding (principal); R10.2 Pelvic and perineal pain; Z79.899 Other long term (current) drug therapy
CPT/HCPCS: 36415; 76801; 76817; 80053; 83735; 84702; 85025; 85610; 86900; 86901; 99284

== ENCOUNTER → 2025-09-04 14:23 | Outpatient (BNVA) | payer SELFPAY | PROVIDERS: Visit Provider Physician Assistant Medical | DX: S63.621A Sprain of interphalangeal joint of right thumb, initial encounter (principal); W23.2XXA Caught, crushed, jammed or pinched between a moving and stationary object, initial encounter | CPT/HCPCS: 73140; 99202 ==